=== PATIENT | male | born 1950 | race Caucasian/White ===

== ENCOUNTER → 2020-08-22 11:37 | Outpatient (BNVA) | payer OTHER, SELFPAY | PROVIDERS: PCP Family Medicine; Referring Provider Emergency Medicine Emergency Medical Services; Visit Provider Specialist | DX: S46.011A Strain of muscle(s) and tendon(s) of the rotator cuff of right shoulder, initial encounter (principal); X50.1XXA Overexertion from prolonged static or awkward postures, initial encounter | CPT/HCPCS: 73030 ==

== ENCOUNTER 2020-09-07 13:57 | Outpatient (RCR) | payer OTHER, SELFPAY | END 2020-09-07 23:59 | disposition home or self-care (01) | LOC: SPT 13:57 | PROVIDERS: PCP Family Medicine; Referring Provider Specialist; Visit Provider Specialist | DX: M75.01 Adhesive capsulitis of right shoulder (principal) | CPT/HCPCS: 97161 ==

== ENCOUNTER 2020-09-08 06:00 | Outpatient (RCR) | payer OTHER, SELFPAY | END 2020-10-07 23:59 | disposition home or self-care (01) | LOC: SPT 06:00 | PROVIDERS: PCP Family Medicine; Referring Provider Specialist; Visit Provider Specialist | DX: M75.01 Adhesive capsulitis of right shoulder (principal) | CPT/HCPCS: 97110; 97530 ==

== ENCOUNTER → 2020-09-21 14:43 | Outpatient (BNVA) | payer OTHER, SELFPAY | PROVIDERS: PCP Family Medicine; Referring Provider Family Medicine; Visit Provider Urology | DX: N39.9 Disorder of urinary system, unspecified (principal); N48.6 Induration penis plastica | CPT/HCPCS: 81003 ==

== ENCOUNTER 2020-10-08 06:00 | Outpatient (RCR) | payer OTHER, SELFPAY | END 2020-11-07 23:59 | disposition home or self-care (01) | LOC: SPT 06:00 | PROVIDERS: PCP Family Medicine; Referring Provider Specialist; Visit Provider Specialist | DX: M75.01 Adhesive capsulitis of right shoulder (principal) | CPT/HCPCS: 97110 ==

== ENCOUNTER 2020-11-01 09:43 | Outpatient (CLI) | payer OTHER, SELFPAY ==
[2020-11-01 09:47] VITALS: BMI 25.7
--- NOTE | 2020-11-01 10:04 | ECG_ITS ---
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 Interpretive Statements NAME OF STUDY: EXERCISE SESTAMIBI STRESS TEST INDICATION: [CP, ] EXERCISE DATA: The patient was exercised by Dann protocol. Baseline heart rate was 78 beats per minute. Baseline blood pressure was 124/81 millimeters of mercury. Target heart rate was 130 beats per minute. Maximum heart rate achieved was 145bpm, which was 111% of the target heart rate. Maximum blood pressure was 178/95 millimeters of mercury. Total exercise time was 3 minutes and 24 seconds. Maximum METs achieved was 4.6, maximum VO2 was 16.1. The reason for ending the test was completion of the protocol. The patient complained of shortness of breath during the stress test, which then resolved at the end of the test. ELECTROCARDIOGRAM: BASELINE: Showed sinus rhythm, normal axis, no significant ST-T changes at the baseline noted. [] EXERCISE: At the peak exercise level, [] minimal ST depressions seen in the inferior leads RECOVERY: During the recovery period, heart rate dropped appropriately. No significant ST-T changes in the recovery suggestive of ischemia noted. [] CONCLUSION: 1. Exercise capacity fair 2. Heart rate response was appropriate. 3. Blood pressure response was appropriate. 4. Symptoms not suggestive of ischemia. 5. Electrocardiogram portion of the stress test was not suggestive of ischemia. 6. Nuclear scan will be documented separately. Electronically Signed On 01-01-2021 17:48:56 CDT by Julio Johnson M.D. [id number]
--- NOTE | 2020-11-01 10:04 | NMCV_ITS ---
NM kalpana perf SPECT r/s* [id number] Dann Roe Age: 70 Gender: M : 1950 Exam Date: 11/01/2020 10:04 Ordering Phys: Kailey Husain Technologist: FILOMENA Nunn Exam Location: [facility] Indications: CHEST PAIN STRESS TEST [facility] IMAGE PROTOCOL Rest/Stress 1 Exercise Day Radiopharmaceutical Dose (mCi) Administration Site Administered by Rest: Tc-99m 11.0 IV FILOMENA Nunn Sestamibi Stress:Tc-99m 32.9 IV FILOMENA Nunn Sestamibi Rest: 01-Nov-2020 60 Discovery 630 Stress: 01-Nov-2020 15 Discovery 630 Radiopharmaceutical was injected at 87supine position only as patient was unable to lay prone. % maximum heart rate. SPECT RESULTS Technical Quality: Good Raw Data Analysis: Normal Image Corrections: No attenuation or motion correction applied Summed Stress Score: 0 Summed Rest Score: 0 Summed Difference Score: 0 PERFUSION FINDINGS Homogenous radiotracer uptake throughout the myocardium. No evidence of ischemia is noted FUNCTIONAL RESULTS (calculated via Gated SPECT) Stress Image LV EF (%): 71 Stress EDV (mL):66 TID: 0.98 Stress ESV (mL):19 FUNCTIONAL FINDINGS: There is normal left ventricular systolic function. IMPRESSIONS 1. Normal myocardial perfusion imaging with no evidence of ischemia 2. LV systolic function is normal Julio Johnson MD (Electronically Signed) Final Date: 04 Nov 2020 11:04 S
[2020-11-01 11:54] VITALS: BP 134/8; PULSE 75
== END 2020-11-01 09:44 | disposition home or self-care (01) ==
PROVIDERS: PCP Family Medicine; Visit Provider Internal Medicine Cardiovascular Disease
DX: R07.9 Chest pain, unspecified (principal)
CPT/HCPCS: 78452; 93017; A9500

== ENCOUNTER 2020-11-08 20:00 | Outpatient (CLI) | payer OTHER, SELFPAY | END 2020-11-08 20:01 | disposition home or self-care (01) | LOC: SLEEP 11-09 08:55 | PROVIDERS: PCP Family Medicine; Visit Provider Family Medicine | DX: R06.83 Snoring (principal); R53.83 Other fatigue; G47.33 Obstructive sleep apnea (adult) (pediatric) | CPT/HCPCS: 95810 ==

== ENCOUNTER 2020-12-19 06:47 | Outpatient (CLI) | payer OTHER, SELFPAY ==
--- NOTE | 2020-12-19 07:15 | USCV_ITS ---
Dann Roe Age: 70 Gender: M : 1950 Exam Date: 12/19/2020 07:16 Ordering Phys: Geraldine Benson MD ([email or web address]) Technologist: Evelio Mathew Exam Location: [facility] Indication: CHEST PAIN BP: 120 / 70 HR: 61 Rhythm: Sinus Technical Quality: Adequate MEASUREMENTS (Male / Female) Normal Values 2D ECHO LV Diastolic Diameter PLAX 3.8 cm 4.2 - 5.9 / 3.9 - 5.3 cm LV Systolic Diameter PLAX 2.2 cm IVS Diastolic Thickness 1.0 cm 0.6 - 1.0 / 0.6 - 0.9 cm IVS Systolic Thickness 1.1 cm LVPW Diastolic Thickness 0.9 cm 0.6 - 1.0 / 0.6 - 0.9 cm LVPW Systolic Thickness 1.1 cm LVOT Diameter 2.0 cm LV Ejection Fraction 2D Teich 74.7 % LV Ejection Fraction MOD 2C 65.0 % LV Ejection Fraction 2C AL 65.3 % LA Diameter 3.2 cm LA Width 3.3 cm LA Height 4.7 cm RA Width 3.7 cm RA Height 4.3 cm Aorta at Sinotubular Diameter 2.6 cm DOPPLER AV Peak Velocity 142.0 cm/s LVOT Peak Velocity 94.0 cm/s AV Area Cont Eq vti 2.4 cm squared AV Area Cont Eq pk 2.2 cm squared MV Area PHT 5.0 cm squared Mitral E to A Ratio 0.6 MV E' Velocity 32.0 cm/s Mitral E to MV E' Ratio 6.0 Mitral E to LV E' Lateral Ratio 5.7 Mitral E to LV E' Septal Ratio 6.2 TR Peak Velocity 160.3 cm/s TR Peak Gradient 10.3 mmHg TV Peak E Velocity 82.0 cm/s Right Atrial Pressure 3.0 mmHg Pulmonary Artery Systolic Pressu 13.3 mmHg RV Acceleration Time 0.1 s FINDINGS Left Ventricle Normal left ventricular size and systolic function, EF 61 %. No regional wall motion abnormalities. Grade I/IV diastolic dysfunction (abnormal relaxation filling pattern), normal to mildly elevated filling pressures. Right Ventricle The right ventricle is normal in size and function. Right Atrium The right atrium is normal in size. Left Atrium The left atrium is normal in size. Mitral Valve Trace mitral valve regurgitation. Aortic Valve No gross abnormalities noted Tricuspid Valve Gross abnormalities noted Pulmonic Valve Pulmonic valve not well visualized. Pericardium Normal pericardium without effusion. Aorta Normal ascending aorta dimension. CONCLUSIONS Normal left ventricular size and systolic function, EF 61 %. No regional wall motion abnormalities. Grade I/IV diastolic dysfunction (abnormal relaxation filling pattern), normal to mildly elevated filling pressures. Trace mitral valve regurgitation. There is no pericardial effusion. There are no intracardiac masses. No previous study is available for comparison. Dr Geraldine Benson MD [facility] (Electronically Signed) Final Date: 19 December 2020 12:09 S
== END 2020-12-19 06:48 | disposition home or self-care (01) ==
LOC: US 06:48
PROVIDERS: PCP Family Medicine; Visit Provider Internal Medicine Cardiovascular Disease
DX: R07.89 Other chest pain (principal); I34.0 Nonrheumatic mitral (valve) insufficiency
CPT/HCPCS: 93306

== ENCOUNTER → 2021-01-18 08:13 | Outpatient (BNVA) | payer OTHER, SELFPAY | PROVIDERS: PCP Family Medicine; Visit Provider Specialist | DX: M25.569 Pain in unspecified knee (principal); M17.11 Unilateral primary osteoarthritis, right knee | CPT/HCPCS: 73560; 73565 ==

== ENCOUNTER 2021-12-07 08:51 | Day surgery (SDC) | payer OTHER, SELFPAY ==
[2021-10-09 10:46] VITALS: BMI 24.2
[2021-12-05 10:24] VITALS: BMI 24.2
[2021-12-07 09:09] VITALS: BP 119/85; PULSE 67; RESP 18; TEMP 36.6; O2SAT 96
[2021-12-07] MEDS: sodium chloride 0.9% 1,000 ML 30 ML IV (09:38)
--- NOTE | 2021-12-07 10:08 | P.HP_ITS ---
Same Day Surgery H&P Indication for Procedure/HPI DATE OF PROCEDURE: December 07, 2021 CHIEF COMPLAINT/INDICATIONFOR SURGICAL PROCEDURE: History of Way's esophagus PREOP DIAGNOSIS: Way's esophagus and screening colonoscopy PLANNED PROCEDURE: Operation Date: 12/07/21 10:30 Proposed Procedures p EGD [id number]/k22.70/z12.11(Not Applicable) - MD rosanna Machuca Colonoscopy(Not Applicable) - Pascual Duncan MD 07/26/2021 This is a pleasant 71 years old gentleman referred to my practice with history of Way's esophagitis per his description and every 3 years he would get a surveillance EGD and the last one he had was about 4 years ago. At an outside facility. Patient reports that he has been on PPI therapy for more than 6 months. And the last colonoscopy was done about 12 years ago reported as normal per patient's description. He denies currently any abdominal pain, bleeding per rectum or history of colon cancer or iron deficiency anemia. Interim history 12/07/2021 Patient comes today for surveillance EGD and screening colonoscopy ROS All systems have been reviewed negative except as for the above or per problem list. Medications/Allergies* Home Medications Medication Instructions Recorded Confirmed Type ibuprofen 200 mg tablet 200 mg PO Q6H PRN 08/22/20 12/07/21 History lisinopril 40 mg tablet 40 mg PO DAILY 09/06/20 12/07/21 History nitroglycerin 0.4 mg sublingual 0.4 mg SUBLINGUAL Q5M PRN 09/06/20 12/07/21 History tablet omeprazole 20 mg capsule,delayed 20 mg PO DAILY 09/06/20 12/07/21 History release albuterol sulfate 90 mcg/actuation 2 puff INHALATION Q6H PRN 09/21/20 12/07/21 History aerosol inhaler (ProAir HFA) cholecalciferol (vitamin D3) 50 100 mcg PO DAILY cap 09/21/20 12/07/21 History mcg (2,000 unit) capsule nitroglycerin 0.4 % (w/w) rectal 1 inch WI BID PRN 09/21/20 12/07/21 History ointment triamcinolone acetonide 0.1 % 1 applic TOPICAL DAILY PRN 09/21/20 12/07/21 History topical cream Allergies/Adverse Reactions Allergy/AdvReac Type Severity Reaction Status Date / Time erythromycin base Allergy Unknown Verified 12/07/21 10:10 tramadol Allergy Unknown Verified 12/07/21 10:10 Current Medications: Generic Name Dose Route Start Last Admin Trade Name Benoitq PRN Reason Stop Dose Admin Sodium Chloride 1,000 mls @ 30 mls/hr 12/07/21 09:15 12/07/21 09:38 Sodium Chloride 0.9% IV 30 mls/hr .Q24H SANCHO Administration Pertinent History/Comorbid Conditions* Medical History (Updated 07/29/21 @ 16:05 by Pascual Duncan MD) Ganglion cyst Hernia, inguinal History of asthma Hx of benign neoplasm of breast Hypertension Peyronie's disease Torn ligament Surgical History (Updated 07/17/21 @ 16:27 by Laura Melara DO) History of cholecystectomy Hx of hand surgery Hx of inguinal hernia repair Hx of right knee surgery Family History (Updated 11/09/20 @ 15:21 by Kait Roman RN) Father, at 74 Mother, at 83 Diabetes Father CAD (coronary artery disease) Father Mother Clotting disorder Mother Brother Dementia Family/Other Cancer Mother Brother Hypertension Father Denies family history of Chronic kidney disease (CKD) Suicide Anesthesia complication Bleeding disorder Lung disease Stroke Social History Smoking and tobacco status: never smoked Alcohol intake: never Marital status: Current occupational status: retired History of recent travel: No Pertinent Exam Findings alert, oriented x 3, regular rate & rhythm and procedure specific exam findings (Abdominal exam nontender nondistended soft) Recommendations Surgery/Procedure today (EGD and colonoscopy with possible biopsy) Coding Level of Care Code Acute 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
--- NOTE | 2021-12-07 10:39 | ANES.PREANE2 ---
Pre-Anesthetic Assessment Height/Weight: Height 1.68 m Weight 68.039 kg Temp Pulse Resp BP Pulse Ox 97.8 F 67 18 119/85 96 12/07/21 09:09 12/07/21 09:09 12/07/21 09:09 12/07/21 09:09 12/07/21 09:09 Preop Diagnosis: Way's esophagus and screening colonoscopy Operation Date: 12/07/21 10:30 Proposed Procedures p EGD [id number]/k22.70/z12.11(Not Applicable) - Pascual Duncan MD s Colonoscopy(Not Applicable) - Pascual Duncan MD Familial anesthetic complications: Hx of esophageal spasm w/ anesthesia, continues to have esophageal spasm at home which is relieved with nitroglycerin Was Beta Jared taken within 24 hours: N/A Was Clonidine taken within 24 hours: N/A Last intake: Intake Last Liquid Date 12/06/21 Last Liquid Time 21:00 Last Solid Date 12/05/21 Last Solid Time 00:00 Social No alcohol and No tobacco Exam alert, oriented x 3, clear to auscultation bilaterally and regular rate & rhythm Airway Submandibular: within normal limits Cervical ROM: within normal limits Mallampati: Class I Dentition: full History/ROS No significant complaints Pulmonary Asthma vocal cord nodule CV/HEM Hypertension METS > 4 None reported Hepatic None reported GI Gastroesophageal Reflux Disease Hx Barretts Metabolic Hx of hypoglycemia Musc/skel None reported Neuropsych None reported Anesthetic Plan ASA status: 2 Anesthesia: Anesthesia Evaluation, General and MAC Other: I discussed with the patient risks, goals, and benefits of MAC and general anesthesia. We discussed spectrum of MAC anesthesia including conversion to general as well as possibility of recall of intraoperative stimuli including discomfort/pain. Patient agrees to proceed with MAC. Risk of > 500 ml blood loss (7ml/kg in children): No Medications/Allergies Home Medications Medication Instructions Recorded Confirmed Last Taken Type ibuprofen 200 mg tablet 200 mg PO Q6H PRN 08/22/20 12/07/21 12/06/21 History lisinopril 40 mg tablet 40 mg PO DAILY 09/06/20 12/07/21 12/06/21 History nitroglycerin 0.4 mg sublingual 0.4 mg SUBLINGUAL Q5M PRN 09/06/20 12/07/21 Unknown History tablet omeprazole 20 mg capsule,delayed 20 mg PO DAILY 09/06/20 12/07/21 12/06/21 History release albuterol sulfate 90 mcg/actuation 2 puff INHALATION Q6H PRN 09/21/20 12/07/21 11/07/21 History aerosol inhaler (ProAir HFA) cholecalciferol (vitamin D3) 50 100 mcg PO DAILY cap 09/21/20 12/07/21 12/06/21 History mcg (2,000 unit) capsule nitroglycerin 0.4 % (w/w) rectal 1 inch MO BID PRN 09/21/20 12/07/21 Unknown History ointment triamcinolone acetonide 0.1 % 1 applic TOPICAL DAILY PRN 09/21/20 12/07/21 Unknown History topical cream Allergies Allergy/AdvReac Type Severity Reaction Status Date / Time erythromycin base Allergy Unknown Verified 12/07/21 10:10 tramadol Allergy Unknown Verified 12/07/21 10:10 Current Medications Generic Name Dose Route Start Last Admin Trade Name Freq PRN Reason Stop Dose Admin Sodium Chloride 1,000 mls @ 30 mls/hr 12/07/21 09:15 12/07/21 09:38 Sodium Chloride 0.9% IV 30 mls/hr .Q24H SANCHO Administration PFSH Anesthesia Medical History Ganglion cyst Hernia, inguinal History of asthma Hx of benign neoplasm of breast Hypertension Peyronie's disease Torn ligament Surgical History History of cholecystectomy Hx of hand surgery Hx of inguinal hernia repair Hx of right knee surgery Family History Father , at 74 CAD (coronary artery disease) Diabetes Hypertension Mother , at 83 Cancer CAD (coronary artery disease) Clotting disorder Brother Cancer Clotting disorder Family/Other Dementia Denies family history of Chronic kidney disease (CKD) Suicide Anesthesia complication Bleeding disorder Lung disease Stroke Social History Smoking and tobacco status: never smoked Alcohol intake: never Marital status: Current occupational status: retired History of recent travel: No Data Anesthesia Cardiac Studies: Echocardiogram 12/19/20 Sestamibi Stress Test (Cardiology) 11/01/20
[2021-12-07 11:02] VITALS: BP 102/75; PULSE 64; RESP 16; TEMP 36.1; O2SAT 94
--- NOTE | 2021-12-07 11:02 | ANE.PACU2 ---
Documented by User: Jessica Barron CRNA 12/07/21 11:05 Inpatient post-anesthesia follow up: Airway intact: Yes Vital signs: Temperature 97.8 F Pulse Rate 67 Respiratory Rate 18 Blood Pressure 119/85 Pulse Oximetry 96 Oxygen Delivery Me thod Room Air Oxygen Flow Rate Fraction of Inspir ed Oxygen Hydration adequate: Yes Nausea and vomiting: No Pain level: 1 Mental status: Baseline
[2021-12-07 11:07] VITALS: BP 107/85; PULSE 60; RESP 16; O2SAT 93
[2021-12-07 11:17] VITALS: BP 123/97; PULSE 65; RESP 18; O2SAT 95
== END 2021-12-07 11:41 | disposition home or self-care (01) ==
PROVIDERS: PCP Family Medicine; Visit Provider Surgery
PROC: 0DJ08ZZ Inspection of Upper Intestinal Tract, Via Natural or Artificial Opening Endoscopic (ICD-10-PCS; CPT 43235; principal; 2021-12-07 10:30)
PROC: 0DJD8ZZ Inspection of Lower Intestinal Tract, Via Natural or Artificial Opening Endoscopic (ICD-10-PCS; CPT 45378; 2021-12-07 10:30)
DX: Z12.11 Encounter for screening for malignant neoplasm of colon (principal); K22.70 Barrett's esophagus without dysplasia; K29.70 Gastritis, unspecified, without bleeding
CPT/HCPCS: 43239; 45378; 88305; J2704; J7030

== ENCOUNTER → 2021-12-14 14:51 | Outpatient (BNVA) | payer OTHER, SELFPAY | PROVIDERS: PCP Family Medicine; Visit Provider Surgery | DX: Z09 Encounter for follow-up examination after completed treatment for conditions other than malignant neoplasm (principal); K29.70 Gastritis, unspecified, without bleeding; K22.70 Barrett's esophagus without dysplasia | CPT/HCPCS: 99213 ==

== ENCOUNTER 2022-07-27 21:38 | Emergency (ER) | payer OTHER, SELFPAY ==
[2022-07-27 21:43] VITALS: BP 141/83; PULSE 137; RESP 16; TEMP 36.9; O2SAT 95
--- NOTE | 2022-07-27 21:52 | XRR_ITS ---
PROCEDURE INFORMATION: Exam: XR Chest Exam date and time: 07/27/2022 9:59 PM Age: 72 years old Clinical indication: Shortness of breath; Additional info: SOB TECHNIQUE: Imaging protocol: Radiologic exam of the chest. Views: 1 view. COMPARISON: No relevant prior studies available. FINDINGS: Lungs: No CHF/pulmonary edema. Visible lungs appear essentially clear. Pleural spaces: No visible pneumothorax. No definite pleural fluid. Heart/Mediastinum: Heart size is within normal limits. Bones/joints: No significant acute finding. XR/XR chest 1V portable [id number] IMPRESSION: 1. No definite CHF or pneumonia. 2. Other findings discussed above.
--- NOTE | 2022-07-27 21:53 | ECG_ITS ---
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 Measurements Intervals [place] Rate: 108 P: 9 NC: 141 QRS: 72 QRSD: 89 T: -3 QT: 287 QTc: 386 Interpretive Statements SINUS TACHYCARDIA NONSPECIFIC ST & T-WAVE ABNORMALITY No previous ECG available for comparison Electronically Signed On 07-27-2022 23:13:04 FACILITY SERVICE ASSOCIATE by Gela Carl M.D. [id number]
--- NOTE | 2022-07-27 21:55 | CTR_ITS ---
PROCEDURE INFORMATION: Exam: CT Abdomen And Pelvis With Contrast Exam date and time: 07/27/2022 11:27 PM Age: 72 years old Clinical indication: Abdominal pain; Localized; Right lower quadrant (rlq); Prior surgery; Surgery date: 6+ months; Surgery type: Cholecystectomy; Additional info: Abd pain TECHNIQUE: Imaging protocol: Computed tomography of the abdomen and pelvis with contrast. Radiation optimization: All CT scans at this facility use at least one of these dose optimization techniques: automated exposure control; mA and/or kV adjustment per patient size (includes targeted exams where dose is matched to clinical indication); or iterative reconstruction. Contrast material: OMNI 350; Contrast volume: 100 ml; Contrast route: INTRAVENOUS (IV); Other protocol: This patient has received 0 known CTs and 0 known cardiac nuclear medicine studies in the 12 months prior to the current study. COMPARISON: CR (CHEST, ) 07/27/2022 9:59 PM RADIATION DOSE METRICS: Total DLP (mGy-cm): 454.42 FINDINGS: Lungs: There is some subsegmental atelectasis at the lung bases. There are few nonspecific solid noncalcified pulmonary nodules such as a 3 mm nodule middle lobe series 3, image number 4 5 mm nodule left lower lobe series 3, image 12 and other similar nodules. For patients at low risk (minimal or absent history of smoking and of other known risk factors), no routine follow-up is indicated. For patients at high risk (history of smoking or of other known risk factors), consider optional CT Chest at 12 months. (Reference: Barbara). There is some minimal dependent atelectasis at the lung bases. Diaphragm: There is a small hiatal hernia. Liver: There is no focal abnormality within the liver. Gallbladder and bile ducts: There has been a cholecystectomy. Pancreas: The pancreas is normal. Spleen: The spleen is normal. Adrenal glands: The adrenal glands are normal. Kidneys and ureters: 18 mm benign-appearing simple cyst mid right kidney. Small nonobstructing stone lower pole calyx right kidney. There is no evidence of hydronephrosis. There is no stone along the course of either ureter. The left kidney is normal. Stomach and bowel: There are areas of thickening of the right colon with some minimal pericolonic stranding. Findings could represent some nonspecific colitis or inflammatory bowel disease.There is no evidence of intestinal obstruction. Appendix: Appendix is not identified. Intraperitoneal space: Unremarkable. No free air. No significant fluid collection. Vasculature: The aorta is normal. Lymph nodes: There is no evidence of lymphadenopathy. Urinary bladder: Unremarkable as visualized. Reproductive: Unremarkable as visualized. Bones/joints: There is some degenerative change in the lower lumbar spine. Soft tissues: There is moderate sized left inguinal hernia containing only fat. CT/CT abdomen pelvis w con* [id number] IMPRESSION: 1. Findings nonspecific colitis involving the right colon. 2. Small basilar pulmonary nodules. Consider follow-up according to Fleischner society guidelines. COMMENTS: Consistent with the [employer]'s Incidental Findings Committee white paper (J Am Turner Radiol 2018): Any incidental renal lesion less than 1 cm or classified as too small to characterize, or any incidental cystic renal lesion characterized as simple-appearing, is likely benign. No follow-up imaging is recommended for these lesions per consensus recommendations based on imaging criteria. REFERENCES: 1. MacMahon H, et al. Guidelines for Management of Incidental Pulmonary Nodules Detected on CT Images: From the Fleischner Society 2017. Radiology. 2017;284(1):228-243. 2. MacElidahon H, et al. Guidelines for Management of Incidental Pulmonary Nodules Detected on CT Images: From the Fleischner Society 2017. Radiology. 2017;284(1):228-243.
[2022-07-27 22:01] VITALS: BP 139/85; PULSE 130; RESP 20; O2SAT 94
--- NOTE | 2022-07-27 22:06 | W.ED.ABDPA2 ---
HPI - Abdominal Pain General: Chief Complaint: Abdominal Pain Stated Complaint: fever Time Seen by Provider: 07/27/22 21:45 Source: patient Mode of arrival: ambulatory Limitations: no limitations History of Present Illness: 72-year-old male states that he has been having abdominal pain since yesterday. He states this right-sided pain in the right lower and right upper quadrant states that pain comes in waves and sharp in nature currently is a 4 out of 10 he has had chills possible fever but has not checked it he is also had a cough denies any vomiting or diarrhea. Associated Symptoms: Denies chills, dysuria and fever(s) Review of Systems Const: Denies: fever(s), chills, body aches or change in appetite Eyes: Denies: blurry vision or eye discomfort ENMT: Denies: throat pain or dental pain Card: Denies: chest pain Resp: Reports: non-productive cough GI: Reports: abdominal pain : Denies: dysuria Musc: Denies: neck pain or back pain Skin/Breast: Denies: rash Neuro: Denies: headache(s) Psych: Denies: depression Adi/Lymph: Denies: easy bruising All/Imm: Denies: urticaria PFSH ED PFSH: Medical History Ganglion cyst Hernia, inguinal History of asthma Hx of benign neoplasm of breast Hypertension Peyronie's disease Torn ligament Surgical History History of cholecystectomy Hx of hand surgery Hx of inguinal hernia repair Hx of right knee surgery Family History Father , at 74 CAD (coronary artery disease) Diabetes Hypertension Mother , at 83 Cancer CAD (coronary artery disease) Clotting disorder Brother Cancer Clotting disorder Family/Other Dementia Denies family history of Chronic kidney disease (CKD) Suicide Anesthesia complication Bleeding disorder Lung disease Stroke Social History Smoking and tobacco status: never smoked Alcohol intake: never Marital status: Current occupational status: retired Physical Exam Const: COMMON NORMALS: no acute distress, patient oriented x3 and healthy appearing HENMT: COMMON NORMALS: normocephalic and atraumatic HEAD & SCALP: normocephalic and atraumatic Eye: COMMON NORMALS: Equal, round and reactive pupils present and EOMs intact bilaterally PUPIL: Yes Equal, round and reactive pupils present Neck/C-Spine: COMMON NORMALS: full ROM and supple Chest: COMMONS NORMALS: normal inspection of the chest and normal palpation of entire chest wall Resp: COMMON NORMALS: normal respiratory effort, No retractions, No use of accessory muscles and clear to auscultation bilaterally AUSCULTATION: clear to auscultation bilaterally Cardio: COMMON NORMALS: regular rate, regular rhythm and No murmurs present (Cardio) RATE: regular rate RHYTHM: regular rhythm GI: COMMON NORMALS: Normal to inspection, nondistended, normoactive bowel sounds present, Soft to palpation, non-tender and no masses PALPATION: Yes Soft to palpation Extremity: COMMON NORMALS: normal to inspection and full ROM Neuro: COMMON NORMALS: patient oriented x3, moves all extremities and no focal motor deficits Psych: COMMON NORMALS: mental status grossly normal, Normal thought process present and cooperative THOUGHT PROCESS: Normal thought process present Skin: COMMON NORMALS: no rashes or lesions noted and no wounds GENERAL SKIN EXAM: no rashes or lesions noted Course Vital Signs: Vital signs: Vital Signs Temperature 98.5 F 07/27/22 21:43 Pulse Rate 108 H 07/27/22 22:36 Respiratory Rate 20 H 07/27/22 22:01 Blood Pressure 129/91 07/28/22 00:00 Pulse Oximetry 94 07/28/22 00:00 Oxygen Delivery Me thod 07/27/22 22:01 MDM - Abdominal Pain Medical Decision Making Patient presents here with abdominal pain CT does show colitis he has had no vomiting here his blood work is normal we will start him on Cipro Flagyl he is to follow-up with surgery return if worsening. Lab Data 07/27/22 21:57 07/27/22 21:57 Labs/Radiology: Radiology Impressions Chest X-Ray 07/27/22 21:52 IMPRESSION: 1. No definite CHF or pneumonia. 2. Other findings discussed above. Abdomen/Pelvis CT 07/27/22 21:55 IMPRESSION: 1. Findings nonspecific colitis involving the right colon. 2. Small basilar pulmonary nodules. Consider follow-up according to Fleischner society guidelines. COMMENTS: Consistent with the [employer]'s Incidental Findings Committee white paper (J Am Turner Radiol 2018): Any incidental renal lesion less than 1 cm or classified as too small to characterize, or any incidental cystic renal lesion characterized as simple-appearing, is likely benign. No follow-up imaging is recommended for these lesions per consensus recommendations based on imaging criteria. REFERENCES: 1. Jermainehorossy H, et al. Guidelines for Management of Incidental Pulmonary Nodules Detected on CT Images: From the Fleischner Society 2017. Radiology. 2017;284(1):228-243. 2. Barbara Ponce, et al. Guidelines for Management of Incidental Pulmonary Nodules Detected on CT Images: From the Fleischner Society 2017. Radiology. 2017;284(1):228-243. Laboratory Results WBC 9.5 10^3/uL (4.0-10.0) 07/27/22 21:57 RBC 4.73 10^6/uL (4.1-5.3) 07/27/22 21:57 Hgb 13.8 g/dL (11.7-16.6) 07/27/22 21:57 Hct 41.0 % (42.0-52.0) L 07/27/22 21:57 MCV 86.7 fl (80-94) 07/27/22 21:57 MCH 29.2 pg (28.0-34.0) 07/27/22 21:57 MCHC 33.7 g/dL (30.0-36.0) 07/27/22 21:57 RDW 12.2 % (12.1-15.1) 07/27/22 21:57 Plt Count 171 10^3/cmm (130-400) 07/27/22 21:57 MPV 8.9 fL (7.4-10.4) 07/27/22 21:57 Neut % (Auto) 82.0 % 07/27/22 21:57 Lymph % (Auto) 8.2 % 07/27/22 21:57 Brooks % (Auto) 8.9 % 07/27/22 21:57 Eos % (Auto) 0.4 % 07/27/22 21:57 Baso % (Auto) 0.3 % 07/27/22 21:57 Neut # (Auto) 7.77 10^3/uL (1.8-7.7) H 07/27/22 21:57 Lymph # (Auto) 0.8 10^3/uL (0.8-4.8) 07/27/22 21:57 Brooks # (Auto) 0.8 10^3/uL (0.2-0.9) 07/27/22 21:57 Eos # (Auto) 0.0 10^3/uL (0.0-0.8) 07/27/22 21:57 Baso # (Auto) 0.0 10^3/uL (0.0-0.1) 07/27/22 21:57 Nucleated RBC % (auto) 0 % 07/27/22 21:57 Nucleated RBCs # 0.0 /100WBC 07/27/22 21:57 Sodium 133 mmol/L (136-145) L 07/27/22 21:57 Potassium 3.8 mmol/L (3.5-5.1) 07/27/22 21:57 Chloride 100 mmol/L (98-107) 07/27/22 21:57 Carbon Dioxide 24 mmol/L (22-29) 07/27/22 21:57 Anion Gap 12.8 (5-19) 07/27/22 21:57 BUN 19 mg/dL (8-23) 07/27/22 21:57 Creatinine 0.9 mg/dL (0.7-1.2) 07/27/22 21:57 GFR Calculation 83.4 mL/min (90-130) L 07/27/22 21:57 Glucose 130 mg/dL (65-115) H 07/27/22 21:57 Calculated Osmolality 280 mOsm/kg (285-295) L 07/27/22 21:57 Calcium 9.2 mg/dL (8.5-10.5) 07/27/22 21:57 Total Bilirubin 0.3 mg/dL (0.15-1.2) 07/27/22 21:57 AST 13 U/L (0-40) 07/27/22 21:57 ALT 12 U/L (0-41) 07/27/22 21:57 Alkaline Phosphatase 104 U/L (40-130) 07/27/22 21:57 Total Protein 6.7 g/dL (6.6-8.7) 07/27/22 21:57 Albumin 3.9 g/dL (3.5-5.2) 07/27/22 21:57 Globulin 2.8 g/dL (1.3-4.6) 07/27/22 21:57 Lipase 23 U/L (13-60) 07/27/22 21:57 Urine Color Yellow (Yellow) 07/27/22 22:13 Urine Appearance Clear (CLEAR) 07/27/22 22:13 Urine pH 5 (5-7) 07/27/22 22:13 Ur Specific [place] 1.025 (1.005-1.030) 07/27/22 22:13 Urine Protein Neg (Negative) 07/27/22 22:13 Urine Glucose (UA) Norm (Normal) 07/27/22 22:13 Urine Ketones Negative (Negative) 07/27/22 22:13 Urine Blood Neg (Negative) 07/27/22 22:13 Urine Nitrate Negative (Negative) 07/27/22 22:13 Urine Bilirubin Neg (Negative) 07/27/22 22:13 Urine Urobilinogen Neg mg/dL (Negative) 07/27/22 22:13 Ur Leukocyte Esterase Negative (Negative) 07/27/22 22:13 Influenza Type A Ag negative (Negative) 07/27/22 22:03 Influenza Type B Ag negative (Negative) 07/27/22 22:03 SARS-CoV-2 Ag (Rapid) Negative (Negative) 07/27/22 22:03 Discharge Plan Discharge Patient Disposition: Home Clinical Impression: Abdominal pain, Colitis Condition: Stable Prescriptions: New hydrocodone-acetaminophen 5-325 mg tablet 1 tab PO Q6H PRN (Reason: pain) Qty: 14 0RF metronidazole 500 mg tablet 500 mg PO Q8H 7 Days Qty: 21 0RF ciprofloxacin HCl [Cipro] 500 mg tablet 500 mg PO BID Qty: 14 0RF ondansetron 4 mg tablet,disintegrating 4 mg PO Q6H PRN (Reason: nausea and vomiting) Qty: 14 0RF No Action ibuprofen 200 mg tablet 200 mg PO Q6H PRN (Reason: Pain) Hold Instructions: Resume on 12/13/21. nitroglycerin 0.4 mg tablet, sublingual 0.4 mg sublingual Q5M PRN (Reason: Chest Pain) Rx Instructions: do not exceed 3 doses per episode lisinopril 40 mg tablet 40 mg PO DAILY cholecalciferol (vitamin D3) 50 mcg (2,000 unit) capsule 100 mcg PO DAILY albuterol sulfate [ProAir HFA] 90 mcg/actuation HFA aerosol inhaler 2 puff inhalation Q6H PRN (Reason: Shortness Of Breath) nitroglycerin 0.4 % (w/w) ointment 1 inch AL BID PRN (Reason: Chest Pain) triamcinolone acetonide 0.1 % cream 1 applic topical DAILY PRN (Reason: Rash) Protonix 40 mg tablet,delayed release (DR/EC) 40 mg PO DAILY 30 Days Qty: 30 3RF Discharge Orders: Discharge ED (Routine); Ordered 07/28/22 Ordered By: Arianne Wayne Referrals: Juanita Young MD [Primary Care Provider] - Hany Nair DO [Physician] - 1-3 days Discharge Diet: Advance as tolerated Discharge Activity: Resume usual activity Patient Instructions: Abdominal Pain (ED), Opioid Safety, Pain Management Coding Level of Care Code ED Machine [employer] Screen Printer for Alannah Ruiz
[2022-07-27] MEDS: morphine 4 mg/mL SDV 1 mL IVP (22:14)
[2022-07-27] MEDS: sodium chloride 0.9% 1,000 ML 999 ML IV (22:14)
[2022-07-27] MEDS: ondansetron 2 mg/ML SDV 2 mL 4 MG IVP (22:14)
[2022-07-27 22:15] LABS: Basophils % 0.3 %; Eosinophils % 0.4 %; Hemoglobin 13.8 g/dL (11.7-16.6); Lymphocytes # 0.8 10^3/uL (0.8-4.8); Lymphocytes % 8.2 %; Mean Corpuscular HGB Conc 33.7 g/dL (30.0-36.0); Mean Corpuscular Hemoglobin 29.2 pg (28.0-34.0); Mean Corpuscular Volume 86.7 fl (80-94); Mean Platelet Volume 8.9 fL (7.4-10.4); Monocytes # 0.8 10^3/uL (0.2-0.9); Monocytes % 8.9 %; Neutrophils # 7.77 10^3/uL (1.8-7.7); Nucleated Red Blood Cells % 0 %; Platelet Count 171 10^3/cmm (130-400); Red Blood Count 4.73 10^6/uL (4.1-5.3); Red Cell Distribution Width 12.2 % (12.1-15.1); White Blood Count 9.5 10^3/uL (4.0-10.0)
[2022-07-27 22:36] VITALS: BP 136/83; PULSE 108; O2SAT 93
[2022-07-27 22:43] LABS: Alanine Aminotransferase 12 U/L (0-41); Albumin Level 3.9 g/dL (3.5-5.2); Alkaline Phosphatase 104 U/L (40-130); Anion Gap 12.8 (5-19); Aspartate Amino Transferase 13 U/L (0-40); Blood Urea Nitrogen 19 mg/dL (8-23); Calcium 9.2 mg/dL (8.5-10.5); Carbon Dioxide 24 mmol/L (22-29); Chloride 100 mmol/L (98-107); Globulin 2.8 g/dL (1.3-4.6); Glomerular Filtration Rate 83.4 mL/min (90-130); Glucose 130 mg/dL (65-115); Lipase 23 U/L (13-60); Osmolality Calculated 280 mOsm/kg (285-295); Potassium 3.8 mmol/L (3.5-5.1); Sodium 133 mmol/L (136-145); Total Bilirubin 0.3 mg/dL (0.15-1.2); Total Protein 6.7 g/dL (6.6-8.7)
[2022-07-27 22:43] LABS: Add Urine Microscopic? NO; Charge for UA Resulting for Rev
[2022-07-27 22:45] LABS: Influenza A by IFA negative (Negative); Influenza B by IFA negative (Negative)
[2022-07-27 22:54] LABS: SARS Covid-2 Antigen Negative (Negative)
[2022-07-27] MEDS: iohexol 350 mg/mL 500 mL Btl (per mL) IV (22:54)
[2022-07-27 22:57] LABS: Bilirubin Urine Neg (Negative); Blood Urine Neg (Negative); Glucose Urine UA Norm (Normal); Ketones Urine Negative (Negative); Leukocyte Esterase Urine Negative (Negative); Nitrate Urine Negative (Negative); Protein Urine Neg (Negative); Specific Gravity, Urine 1.025 (1.005-1.030); Urine Appearance Clear (CLEAR); Urine Color Yellow (Yellow); Urobilinogen Urine Neg (Negative); pH Urine 5 (5-7)
[2022-07-28] VITALS: BP 129/91; O2SAT 94
[2022-07-28] MEDS: ciprofloxacin 500 mg Tablet PO (01:04)
[2022-07-28] MEDS: metroNIDAZOLE 500 MG Tablet PO (01:04)
[2022-07-28 01:23] VITALS: BP 119/98; PULSE 108; RESP 16; O2SAT 95
--- NOTE | 2022-07-30 11:16 | DCPLANNER ---
Addendum entered by Krys Mcgee 07/31/22 15:01: cardiology manager received the following message from the general surgery clinic regarding follow up appointment: unfortunately Dr[facility] Nair [facility] patient will need to be referred elsewhere cardiology manager called patient and explained this to patient and asked patient if he would like to be referred to [facility] or [facility]. Patient stated that he was going to follow up with [facility], [facility], and will let his primary care refer him elsewhere. Original Note: cardiology manager had message to schedule a follow up appointment for patient with general surgery. cardiology manager sent patients information to the front office staff at general surgery. Patients information will be printed and reviewed. Clinic will call patient with appointment information.
== END 2022-07-28 01:24 | disposition home or self-care (01) ==
PROVIDERS: Emergency Provider Emergency Medicine; PCP Family Medicine
DX: K52.9 Noninfective gastroenteritis and colitis, unspecified (principal); Z20.822 Contact with and (suspected) exposure to COVID-19; I10 Essential (primary) hypertension
CPT/HCPCS: 71045; 74177; 80053; 81003; 83690; 85025; 87426; 87804; 93005; 96374; 96375; 99285; J2270; J2405; J7030; Q9967

== ENCOUNTER 2022-08-15 11:31 | Emergency (ER) | payer OTHER, SELFPAY ==
[2022-08-15 11:36] VITALS: BP 120/78; PULSE 122; RESP 22; TEMP 36.7; O2SAT 96; BMI 24.2
--- NOTE | 2022-08-15 11:40 | PC.PHAR ---
[facility] fax[facility] med [facility]
--- NOTE | 2022-08-15 11:54 | CT_ITS ---
WS: [id number] CT ABDOMEN PELVIS TECHNIQUE: Contrast-enhanced CT of the abdomen and pelvis with coronal and sagittal reformatted image s. CLINICAL INFORMATION: abd pain COMPARISON: July 27, 2022 DLP: 395.[address] scans at [facility] use at least one of these dose optimization techniques: automated e xposure control; mA and/or kV adjustment per patient size (includes targeted exams where dose is matc hed to clinical indication); or iterative reconstruction. FINDINGS: Again seen is diffuse transmural wall thickening with luminal narrowing involving the cecum and RIGHT ascending colon. Associated mucosal submucosal enhancement. Surrounding enlarged lymph nodes in the RIGHT lower quadrant have progressed compared to previous. Again findings suspicious for colitis em miguel carcinoma not excluded and recommend follow-up to resolution. A few air-fluid levels in the trans verse colon. Normal descending LEFT colon. Fluid within the sigmoid colon with mild mucosal enhanceme nt. Enlarged prostate measuring 4.5 CM. Diffuse fatty infiltration of the liver. Normal portal vein and s plenic vein. Normal pancreas. Small esophageal hiatal hernia. A few small subcentimeter nodules in th e lung bases are similar in appearance to the prior CT abdomen pelvis. Largest measure 4 to 5 mm. Nor mal spleen. Normal caliber abdominal aorta. Celiac and SMA are patent. Adrenal glands are normal. Normal renal parenchymal enhancement. No hydronephrosis. RIGHT renal cyst measuring 15 mm. Incidental fat-containing LEFT inguinal hernia. CT/CT abdomen pelvis w con* [id number] IMPRESSION: 1. Diffuse thickening with luminal narrowing and enhancement involving the cec um and extending into the ascending colon similar in appearance to the prior ex amination suspicious for colitis. Carcinoma is not excluded. Recommend follow-u p to resolution and/or further evaluation with colonoscopy. 2. Enlarged lymph nodes in the RIGHT lower quadrant progressed compared to pre vious. 3. Decompressed fluid-filled sigmoid colon with mucosal enhancement suspicious for infectious/inflammatory colitis. 4. Enlarged prostate measuring 4.5 CM. 5. Diffuse fatty infiltration liver. 6. Several noncalcified nodules in the lung bases similar to previous. Recomme nd 6 month follow-up chest CT Notified Alan Gibson DO at 08/15/2022 2:16 PM.
--- NOTE | 2022-08-15 11:54 | XR_ITS ---
WS: [id number] Portable AP upright chest, 08/15/2022 Clinical Data: dyspnea/cough Comparison: Portable chest, 07/27/2022 Findings: No nodules, masses or effusions are seen. The heart is normal. The pulmonary vascularity is not increased. No pneumonia or pneumothorax is seen. The aortic arch shows mild tortuosity. There ar e monitor leads on the chest wall. XR/XR chest 1V portable [id number] Impression: Atherosclerosis.
--- NOTE | 2022-08-15 12:00 | PC.NURSE ---
pt on bedside campus monitor
[2022-08-15 12:12] LABS: Basophils % 0.5 %; Hematocrit 41.9 % (42.0-52.0); Hemoglobin 14.2 g/dL (11.7-16.6); Lymphocytes # 0.5 10^3/uL (0.8-4.8); Mean Corpuscular HGB Conc 33.9 g/dL (30.0-36.0); Mean Corpuscular Hemoglobin 29.5 pg (28.0-34.0); Mean Corpuscular Volume 86.9 fl (80-94); Mean Platelet Volume 9.2 fL (7.4-10.4); Monocytes # 0.8 10^3/uL (0.2-0.9); Neutrophils # 7.39 10^3/uL (1.8-7.7); Nucleated Red Blood Cells % 0 %; Platelet Count 201 10^3/cmm (130-400); Red Blood Count 4.82 10^6/uL (4.1-5.3); Red Cell Distribution Width 12.4 % (12.1-15.1); White Blood Count 8.8 10^3/uL (4.0-10.0)
--- NOTE | 2022-08-15 12:22 | ECG_ITS ---
[facility] Test Date: 2022-08-15 Pat Name: Dann Roe Department: Room: Gender: Male Suppression Crew Leader: : 1950 Requested By: Alan Lawler Order Number: [id number] Clif[place] MD: Dave Garcia M.D. Measurements Intervals [place] Rate: 110 P: -5 MI: 131 QRS: 67 QRSD: 92 T: -21 QT: 305 QTc: 414 Interpretive Statements SINUS TACHYCARDIA WITH OCCASIONAL VENTRICULAR PREMATURE COMPLEXES POSSIBLE INFERIOR MYOCARDIAL INFARCTION , OF INDETERMINATE AGE [30 ms Q WAVE IN II/aVF] Compared to ECG 07/27/2022 22:22:55 Ventricular premature complex(es) now present Myocardial infarct finding now present T-wave abnormality no longer present Electronically Signed On 08-15-2022 15:07:34 HELP DESK REP by Dave Garcia M.D. [email or web address]
[2022-08-15 12:32] LABS: Alanine Aminotransferase 24 U/L (0-41); Albumin Level 3.9 g/dL (3.5-5.2); Alkaline Phosphatase 78 U/L (40-130); Anion Gap 16.8 (5-19); Aspartate Amino Transferase 20 U/L (0-40); Blood Urea Nitrogen 16 mg/dL (8-23); Carbon Dioxide 23 mmol/L (22-29); Chloride 97 mmol/L (98-107); Globulin 3.1 g/dL (1.3-4.6); Glomerular Filtration Rate 73.9 mL/min (90-130); Glucose 115 mg/dL (65-115); Osmolality Calculated 278 mOsm/kg (285-295); Potassium 3.8 mmol/L (3.5-5.1); Sodium 133 mmol/L (136-145); Total Bilirubin 0.6 mg/dL (0.15-1.2)
--- NOTE | 2022-08-15 12:56 | ED_ITS ---
HPI - Abdominal Pain General: Chief Complaint: Abdominal Pain Stated Complaint: headache, abd pain Time Seen by Provider: 08/15/22 11:44 Source: patient Mode of arrival: ambulatory History of Present Illness: 72-year-old male presents emergency room with cough myalgias loose stools diarrhea abdominal cramping and pain systemic my algias that began over the last couple of days. He had similar symptoms several weeks ago is found to have a colitis treated with Cipro and metronidazole he had quite a bit of side effects the metronidazole. Symptoms improved but never resolved. He denies any chest pain or any shortness of breath he has a slight cough but is nonproductive. MD elicited complaint: abdominal pain Pertinent past history: none Onset (ago): week(s) Location: RLQ Severity: moderate Quality: cramping Exacerbating factors: nothing Relieving factors: nothing Associated Symptoms: Reports bloating, change in stool character, GI cramping, diarrhea, nausea and poor appetite; Denies anorexia, belching, change in bowel habits, chills, coffee ground emesis, constipation, dyspepsia, dysuria, excessive flatus, fever(s), heartburn, hematochezia, hematuria, hematemesis, fecal incontinence, loose stools, melena, syncope and vomiting Review of Systems Const: Denies: fever(s) or chills ENMT: Denies: throat pain, ear or mastoid pain, nasal discharge or nasal congestion Card: Denies: syncope Resp: Denies: dyspnea, productive cough or non-productive cough GI: Reports: abdominal pain, nausea, diarrhea, bloating, GI cramping and change in stool character; Denies: vomiting, hematemesis, coffee ground emesis, heartburn, constipation, belching, excessive flatus, fecal incontinence, change in bowel habits, hematochezia or melena : Denies: flank pain, dysuria, urinary frequency, urinary urgency or hematuria Skin/Breast: Denies: rash or pruritus PFSH ED PFSH: Medical History Ganglion cyst Hernia, inguinal History of asthma Hx of benign neoplasm of breast Hypertension Peyronie's disease Torn ligament Surgical History History of cholecystectomy Hx of hand surgery Hx of inguinal hernia repair Hx of right knee surgery Family History Father , at 74 CAD (coronary artery disease) Diabetes Hypertension Mother , at 83 Cancer CAD (coronary artery disease) Clotting disorder Brother Cancer Clotting disorder Family/Other Dementia Denies family history of Chronic kidney disease (CKD) Suicide Anesthesia complication Bleeding disorder Lung disease Stroke Social History Smoking and tobacco status: never smoked Alcohol intake: never Marital status: Current occupational status: retired Physical Exam Const: GENERAL APPEARANCE: cooperative and comfortable ORIENTATION/CONSCIOUSNESS: Yes awake, Yes oriented to person, Yes oriented to p lace and Yes oriented to time HENMT: COMMON NORMALS: normocephalic, atraumatic and hearing grossly normal bilaterally HEAD & SCALP: normocephalic and atraumatic Resp: COMMON NORMALS: normal respiratory effort, No retractions, No use of accessory muscles and clear to auscultation bilaterally AUSCULTATION: clear to auscultation bilaterally Cardio: COMMON NORMALS: regular rate, regular rhythm and No murmurs present (Cardio) RATE: regular rate RHYTHM: regular rhythm GI: COMMON NORMALS: No hepatosplenomegaly present AUSCULTATION: Yes normoactive bowel sounds PALPATION: Yes Tenderness to palpation present (GI) Details: RLQ, No Guarding due to palpation present (GI) and Yes No hepatosplenomegaly present Extremity: COMMON NORMALS: normal to inspection, capillary refill normal, no clubbing, cyanosis or edema, no calf tenderness and no pedal edema Neuro: SENSORIUM/ORIENTATION: Yes oriented to person, Yes oriented to place and Yes oriented to time Skin: COMMON NORMALS: no rashes or lesions noted GENERAL SKIN EXAM: no rashes or lesions noted Course Vital Signs: Vital signs: Vital Signs Temperature 98.0 F 08/15/22 15:27 Pulse Rate 101 H 08/15/22 15:27 Respiratory Rate 18 08/15/22 15:27 Blood Pressure 120/97 08/15/22 15:27 Pulse Oximetry 94 08/15/22 15:27 Oxygen Delivery Me thod 08/15/22 14:05 MDM - Abdominal Pain Medical Decision Making CT abdomen shows persistent colitis there is some concern about possible neoplastic involvement. Patient reports he had a colonoscopy within the last year that was reported to him as normal. Was concerned with his constellation symptoms that he may have COVID however that was negative as well. We will discharge patient home on Augmentin. Strongly recommend that he follow-up with his primary care doctor within the next few weeks to reevaluate if this persists he may need repeat colonoscopy or referral to gastroenterology. Additionally several noncalcified lung nodules at the lung base radiology recommends 6-month follow-up on CT. Lab Data 08/15/22 12:00 08/15/22 12:00 Labs/Radiology: Radiology Impressions Abdomen/Pelvis CT 08/15/22 11:54 IMPRESSION: 1. Diffuse thickening with luminal narrowing and enhancement involving the cecum and extending into the ascending colon similar in appearance to the prior examination suspicious for colitis. Carcinoma is not excluded. Recommend follow- up to resolution and/or further evaluation with colonoscopy. 2. Enlarged lymph nodes in the RIGHT lower quadrant progressed compared to previous. 3. Decompressed fluid-filled sigmoid colon with mucosal enhancement suspicious for infectious/inflammatory colitis. 4. Enlarged prostate measuring 4.5 CM. 5. Diffuse fatty infiltration liver. 6. Several noncalcified nodules in the lung bases similar to previous. Recommend 6 month follow-up chest CT Notified Alan Gibson DO at 08/15/2022 2:16 PM. Chest X-Ray 08/15/22 11:54 Impression: Atherosclerosis. Laboratory Results WBC 8.8 10^3/uL (4.0-10.0) 08/15/22 12:00 RBC 4.82 10^6/uL (4.1-5.3) 08/15/22 12:00 Hgb 14.2 g/dL (11.7-16.6) 08/15/22 12:00 Hct 41.9 % (42.0-52.0) L 08/15/22 12:00 MCV 86.9 fl (80-94) 08/15/22 12:00 MCH 29.5 pg (28.0-34.0) 08/15/22 12:00 MCHC 33.9 g/dL (30.0-36.0) 08/15/22 12:00 RDW 12.4 % (12.1-15.1) 08/15/22 12:00 Plt Count 201 10^3/cmm (130-400) 08/15/22 12:00 MPV 9.2 fL (7.4-10.4) 08/15/22 12:00 Neut % (Auto) 84.0 % 08/15/22 12:00 Lymph % (Auto) 6.0 % 08/15/22 12:00 [place] % (Auto) 9.0 % 08/15/22 12:00 Eos % (Auto) 0.0 % 08/15/22 12:00 Baso % (Auto) 0.5 % 08/15/22 12:00 Neut # (Auto) 7.39 10^3/uL (1.8-7.7) 08/15/22 12:00 Lymph # (Auto) 0.5 10^3/uL (0.8-4.8) L 08/15/22 12:00 [place] # (Auto) 0.8 10^3/uL (0.2-0.9) 08/15/22 12:00 Eos # (Auto) 0.0 10^3/uL (0.0-0.8) 08/15/22 12:00 Baso # (Auto) 0.0 10^3/uL (0.0-0.1) 08/15/22 12:00 Nucleated RBC % (auto) 0 % 08/15/22 12:00 Nucleated RBCs # 0.0 /100WBC 08/15/22 12:00 Sodium 133 mmol/L (136-145) L 08/15/22 12:00 Potassium 3.8 mmol/L (3.5-5.1) 08/15/22 12:00 Chloride 97 mmol/L (98-107) L 08/15/22 12:00 Carbon Dioxide 23 mmol/L (22-29) 08/15/22 12:00 Anion Gap 16.8 (5-19) 08/15/22 12:00 BUN 16 mg/dL (8-23) 08/15/22 12:00 Creatinine 1.0 mg/dL (0.7-1.2) 08/15/22 12:00 GFR Calculation 73.9 mL/min (90-130) L 08/15/22 12:00 Glucose 115 mg/dL (65-115) 08/15/22 12:00 Calculated Osmolality 278 mOsm/kg (285-295) L 08/15/22 12:00 Calcium 9.0 mg/dL (8.5-10.5) 08/15/22 12:00 Total Bilirubin 0.6 mg/dL (0.15-1.2) 08/15/22 12:00 AST 20 U/L (0-40) 08/15/22 12:00 ALT 24 U/L (0-41) 08/15/22 12:00 Alkaline Phosphatase 78 U/L (40-130) 08/15/22 12:00 Total Protein 7.0 g/dL (6.6-8.7) 08/15/22 12:00 Albumin 3.9 g/dL (3.5-5.2) 08/15/22 12:00 Globulin 3.1 g/dL (1.3-4.6) 08/15/22 12:00 Urine Color Yellow (Yellow) 08/15/22 14:24 Urine Appearance Clear (CLEAR) 08/15/22 14:24 Urine pH 7 (5-7) 08/15/22 14:24 Ur Specific [place] 1.005 (1.005-1.030) 08/15/22 14:24 Urine Protein Trace (Negative) 08/15/22 14:24 Urine Glucose (UA) Norm (Normal) 08/15/22 14:24 Urine Ketones 1+ (Negative) H 08/15/22 14:24 Urine Blood Neg (Negative) 08/15/22 14:24 Urine Nitrate Negative (Negative) 08/15/22 14:24 Urine Bilirubin Neg (Negative) 08/15/22 14:24 Urine Urobilinogen Neg mg/dL (Negative) 08/15/22 14:24 Ur Leukocyte Esterase Negative (Negative) 08/15/22 14:24 Urine RBC None /hpf (0-2) 08/15/22 14:24 Urine WBC None /hpf (0-5) 08/15/22 14:24 Ur Squamous Epith Cells None /hpf (0-5) 08/15/22 14:24 Amorphous Sediment Not Reportable 08/15/22 14:24 Urine Bacteria None /hpf (NONE) 08/15/22 14:24 Coronavirus 229E (PCR) Not detected (NOT DETECT) 08/15/22 12:01 SARS-CoV-2 (PCR) Not detected (NOT DETECT) 08/15/22 12:01 Discharge Plan Discharge Patient Disposition: Home Clinical Impression: Colitis, Pulmonary nodule Condition: Stable Prescriptions: New Augmentin 500-125 mg tablet 1 tab PO TID Qty: 10 0RF hydrocodone-acetaminophen 5-325 mg tablet 1 tab PO Q6H PRN (Reason: pain) Qty: 20 0RF ondansetron HCl 4 mg tablet 4 mg PO Q6H PRN (Reason: nausea and vomiting) Qty: 20 0RF No Action ibuprofen 200 mg tablet 200 mg PO Q6H PRN (Reason: Pain) Hold Instructions: Resume on 12/13/21. nitroglycerin 0.4 mg tablet, sublingual 0.4 mg sublingual Q5M PRN (Reason: Chest Pain) Rx Instructions: do not exceed 3 doses per episode lisinopril 40 mg tablet 40 mg PO DAILY cholecalciferol (vitamin D3) 50 mcg (2,000 unit) capsule 100 mcg PO DAILY albuterol sulfate [ProAir HFA] 90 mcg/actuation HFA aerosol inhaler 2 puff inhalation Q6H PRN (Reason: Shortness Of Breath) nitroglycerin 0.4 % (w/w) ointment 1 inch IN BID PRN (Reason: Chest Pain) triamcinolone acetonide 0.1 % cream 1 applic topical DAILY PRN (Reason: Rash) Protonix 40 mg tablet,delayed release (DR/EC) 40 mg PO DAILY 30 Days Qty: 30 3RF hydrocodone-acetaminophen 5-325 mg tablet 1 tab PO Q6H PRN (Reason: pain) Qty: 14 0RF Cipro 500 mg tablet 500 mg PO BID Qty: 14 0RF ondansetron 4 mg tablet,disintegrating 4 mg PO Q6H PRN (Reason: nausea and vomiting) Qty: 14 0RF Discharge Orders: Discharge ED (Routine); Ordered 08/15/22 Ordered By: Alan Gibson Referrals: Juanita Young MD [Primary Care Provider] - Discharge Diet: Clear Liquid Discharge Activity: Increase activity as tolerated Patient Instructions: Opioid Safety, Pain Management Activity Restrictions/Additional Instructions: Repeat CT shows persistent colitis. Recommend you start antibiotics as prescribed today and follow-up with your doctor if you have not had a colonoscopy in the last few years you should have a colonoscopy scheduled sometime soon with your primary care doctor. Coding Level of Care Code ED Cushion Stuffer for Alannah Ruiz
[2022-08-15] MEDS: sodium chloride 0.9% 1,000 ML 999 ML IV (13:20)
[2022-08-15] MEDS: iohexol 350 mg/mL 500 mL Btl (per mL) IV (13:43)
[2022-08-15 13:59] LABS: Adenovirus Not Detected (NOT DETECT); Chlamydia Pneumoniae Not Detected (NOT DETECT); Coronavirus 229E,HKU1,NL63,OC4 Not Detected (NOT DETECT); Human Metapneumovirus Not Detected (NOT DETECT); Human Rhinovirus/Enterovirus Not Detected (NOT DETECT); Influenza A Not Detected (NOT DETECT); Influenza A H1 Not Detected (NOT DETECT); Influenza A H1-2009 Not Detected (NOT DETECT); Influenza A H3 Not Detected (NOT DETECT); Influenza B Not Detected (NOT DETECT); Mycoplasma Pneumoniae Not Detected (NOT DETECT); Parainfluenza Virus Type 1 Not Detected (NOT DETECT); Parainfluenza Virus Type 2 Not Detected (NOT DETECT); Parainfluenza Virus Type 3 Not Detected (NOT DETECT); Parainfluenza Virus Type 4 Not Detected (NOT DETECT); Respiratory Syncytial Virus A Not Detected (NOT DETECT); Respiratory Syncytial Virus B Not Detected (NOT DETECT); SARS-COV-2 Not Detected (NOT DETECT)
[2022-08-15 14:05] VITALS: BP 109/79; PULSE 93; O2SAT 93
[2022-08-15 14:57] LABS: Add Urine Microscopic? YES; Bilirubin Urine Neg (Negative); Blood Urine Neg (Negative); Glucose Urine UA Norm (Normal); Ketones Urine 1+ (Negative); Leukocyte Esterase Urine Negative (Negative); Nitrate Urine Negative (Negative); Protein Urine Trace (Negative); Specific Gravity, Urine 1.005 (1.005-1.030); Urine Appearance Clear (CLEAR); Urine Color Yellow (Yellow); Urobilinogen Urine Neg (Negative); pH Urine 7 (5-7)
[2022-08-15 15:00] LABS: Add Urine Culture? No
[2022-08-15 15:27] VITALS: BP 120/97; PULSE 101; RESP 18; TEMP 36.7; O2SAT 94
--- NOTE | 2022-08-16 11:05 | DCPLANNER ---
assistant project manager had message to schedule an outpatient CT for patient. Patient has [facility] insurance, this test cannot be ordered out of the ER. assistant project manager sent patients information to the [facility], that patient needed this test in the next 6 months. assistant project manager sent patients information to the [facility].
== END 2022-08-15 15:29 | disposition home or self-care (01) ==
PROVIDERS: Emergency Provider Family Medicine; PCP Family Medicine
DX: K52.9 Noninfective gastroenteritis and colitis, unspecified (principal); R91.1 Solitary pulmonary nodule; Z20.822 Contact with and (suspected) exposure to COVID-19; K76.0 Fatty (change of) liver, not elsewhere classified; I10 Essential (primary) hypertension
CPT/HCPCS: 71045; 74177; 80053; 81001; 85025; 87635; 93005; 96360; 99285; J7030; Q9967

== ENCOUNTER → 2022-09-10 15:35 | Outpatient (BNVA) | payer OTHER, SELFPAY | PROVIDERS: PCP Family Medicine; Visit Provider Otolaryngology | DX: Z71.1 Person with feared health complaint in whom no diagnosis is made (principal); K11.7 Disturbances of salivary secretion | CPT/HCPCS: 99212; 99213 ==

== ENCOUNTER → 2022-12-25 15:33 | Outpatient (BNVA) | payer OTHER, SELFPAY | PROVIDERS: PCP Family Medicine; Visit Provider Otolaryngology | DX: R49.0 Dysphonia (principal); J38.7 Other diseases of larynx | CPT/HCPCS: 31575; 99213 ==

== ENCOUNTER 2023-03-12 17:20 | Emergency (ER) | payer OTHER, SELFPAY ==
[2023-03-12 17:35] VITALS: BP 113/71; PULSE 69; RESP 17; TEMP 36.7; O2SAT 98; BMI 22.4
--- NOTE | 2023-03-12 19:59 | ED_ITS ---
HPI - Headache General: Chief Complaint: Headache Stated Complaint: right side head pain Time Seen by Provider: 03/12/23 19:39 Source: patient Mode of arrival: ambulatory Limitations: no limitations History of Present Illness: Patient is a 72-year-old male who presents the emergency room with a headache and right ear pain. Patient reports that this pain started approximately 2 weeks ago and has progressively gotten worse and has not subsided. Patient voicing concern for possible TIA as he has had previous TIAs in the past with headache symptoms. Patient also has a complaint of upper back pain. Reports allergy symptoms of sinus congestion and utilizing loratadine at home. States he takes 500 mg of Tylenol nightly for headache and it relieves pain minimal. Current pain score is 3/10 on pain scale. No other complaints at this time. MD elicited complaint: headache Associated symptoms: Deny chest pain, fever(s), nausea, rash or vomiting Review of Systems Const: Denies: fever(s) or chills Eyes: Denies: change in vision or blurry vision ENMT: Reports: ear or mastoid pain (right ear) and nasal congestion Card: Denies: chest pain or palpitations Resp: Denies: dyspnea or productive cough GI: Denies: abdominal pain, nausea or vomiting : Denies: flank pain or difficulty urinating Musc: Reports: back pain Skin/Breast: Denies: rash or pruritus PFSH ED PFSH: Medical History Ganglion cyst Hernia, inguinal History of asthma Hx of benign neoplasm of breast Hypertension Peyronie's disease Torn ligament Surgical History History of cholecystectomy History of colonoscopy 2006 Hx of hand surgery Hx of inguinal hernia repair Hx of right knee surgery Family History Father , at 74 CAD (coronary artery disease) Diabetes Hypertension Mother , at 83 Cancer CAD (coronary artery disease) Clotting disorder Brother Cancer Clotting disorder Family/Other Dementia Denies family history of Chronic kidney disease (CKD) Suicide Anesthesia complication Bleeding disorder Lung disease Stroke Social History Smoking and tobacco status: never smoked Alcohol intake: never Substance/Drug Use: never Marital status: Current occupational status: retired Physical Exam Const: COMMON NORMALS: patient oriented x3 and alert GENERAL APPEARANCE: cooperative ORIENTATION/CONSCIOUSNESS: Yes awake HENMT: COMMON NORMALS: normocephalic, external ears normal, EAC's normal and TM's normal bilaterally HEAD & SCALP: normocephalic EXTERNAL EAR: Yes external ears normal EXTERNAL AUDITORY CANAL: EAC's normal TYMPANIC MEMBRANE: TM's normal bilaterally Eye: COMMON NORMALS: Equal, round and reactive pupils present and EOMs intact bilaterally GENERAL EYE: appearance normal, both eyes and all related structures PUPIL: Yes Equal, round and reactive pupils present Neck/C-Spine: COMMON NORMALS: full ROM and no lymphadenopathy GENERAL: Yes normal visual inspection Chest: CHEST: Yes Symmetrical chest wall rise Resp: COMMON NORMALS: normal respiratory effort and clear to auscultation bilaterally AUSCULTATION: clear to auscultation bilaterally Cardio: COMMON NORMALS: S1 normal heart sound present HEART SOUNDS: S1 normal heart sound present GI: COMMON NORMALS: Normal to inspection, nondistended, normoactive bowel sounds present Neuro: COMMON NORMALS: patient oriented x3 SENSORIUM/ORIENTATION: Yes alert Course Vital Signs: Vital signs: Vital Signs Temperature 98.1 F 03/12/23 17:35 Pulse Rate 69 03/12/23 17:35 Respiratory Rate 17 03/12/23 17:35 Blood Pressure 113/71 03/12/23 17:35 Pulse Oximetry 98 03/12/23 17:35 Oxygen Delivery Me thod Room Air 03/12/23 17:35 MDM - Headache Medical Decision Making Patient presents with headaches atypical in nature and sharp pains that are just intermittent he has no headache currently has no tenderness over his temporal artery no signs of temporal arteritis he is stable for discharge we will get him follow-up with neurology Medical Records I reviewed the patient's medical records. Lab Data I reviewed the patient's lab results. No radiology studies performed this visit Discharge Plan Discharge Patient Disposition: Home Clinical Impression: Headache Condition: Stable Prescriptions: No Action ibuprofen 200 mg tablet 200 mg PO Q6H PRN (Reason: Pain) Hold Instructions: Resume on 12/13/21. nitroglycerin 0.4 mg tablet, sublingual 0.4 mg sublingual Q5M PRN (Reason: Chest Pain) Rx Instructions: do not exceed 3 doses per episode lisinopril 40 mg tablet 40 mg PO DAILY cholecalciferol (vitamin D3) 50 mcg (2,000 unit) capsule 100 mcg PO DAILY albuterol sulfate [ProAir HFA] 90 mcg/actuation HFA aerosol inhaler 2 puff inhalation Q6H PRN (Reason: Shortness Of Breath) nitroglycerin 0.4 % (w/w) ointment 1 inch NE BID PRN (Reason: Chest Pain) triamcinolone acetonide 0.1 % cream 1 applic topical DAILY PRN (Reason: Rash) Protonix 40 mg tablet,delayed release (DR/EC) 40 mg PO DAILY 30 Days Qty: 30 3RF hydrocodone-acetaminophen 5-325 mg tablet 1 tab PO Q6H PRN (Reason: pain) Qty: 14 0RF Cipro 500 mg tablet 500 mg PO BID Qty: 14 0RF ondansetron 4 mg tablet,disintegrating 4 mg PO Q6H PRN (Reason: nausea and vomiting) Qty: 14 0RF Augmentin 500-125 mg tablet 1 tab PO TID Qty: 10 0RF hydrocodone-acetaminophen 5-325 mg tablet 1 tab PO Q6H PRN (Reason: pain) Qty: 20 0RF ondansetron HCl 4 mg tablet 4 mg PO Q6H PRN (Reason: nausea and vomiting) Qty: 20 0RF Discharge Orders: Discharge ED (Routine); Ordered 03/12/23 Ordered By: Arianne Wayne Referrals: Juanita Young MD [Primary Care Provider] - Justine Solis MD [Physician] - 1-3 days Discharge Diet: Advance as tolerated Discharge Activity: Resume usual activity Patient Instructions: Acute Headache (ED) Coding Level of Care Code ED Waxing Machine Operator for Alannah Ruiz
--- NOTE | 2023-03-13 11:12 | PC.SOCIAL ---
Neurology Referral Referral message sent at this time. Clinic to contact patient with appt date/time.
== END 2023-03-12 20:40 | disposition home or self-care (01) ==
PROVIDERS: Emergency Provider Emergency Medicine; PCP Family Medicine
DX: R51.9 Headache, unspecified (principal); I10 Essential (primary) hypertension
CPT/HCPCS: 99281

== ENCOUNTER → 2023-12-04 15:14 | Outpatient (BNVA) | payer OTHER, SELFPAY | PROVIDERS: PCP Nurse Practitioner; Referring Provider Nurse Practitioner; Visit Provider Specialist | DX: M17.11 Unilateral primary osteoarthritis, right knee (principal); S46.011A Strain of muscle(s) and tendon(s) of the rotator cuff of right shoulder, initial encounter; X58.XXXA Exposure to other specified factors, initial encounter | CPT/HCPCS: 73030; 99204 ==

== ENCOUNTER 2023-12-19 15:42 | Outpatient (RCR) | payer OTHER, SELFPAY | END 2024-01-08 23:59 | disposition home or self-care (01) | LOC: SPT 15:42 | PROVIDERS: Visit Provider Specialist | DX: M25.511 Pain in right shoulder (principal) | CPT/HCPCS: 97110; 97161; 97530 ==

== ENCOUNTER 2024-01-09 06:00 | Outpatient (RCR) | payer OTHER, SELFPAY | END 2024-02-08 23:59 | disposition home or self-care (01) | LOC: SPT 06:00 | PROVIDERS: Visit Provider Specialist | DX: M25.511 Pain in right shoulder (principal) | CPT/HCPCS: 97110 ==

== ENCOUNTER → 2024-01-27 15:09 | Outpatient (BNVA) | payer OTHER, SELFPAY | PROVIDERS: Visit Provider Nurse Practitioner | DX: M19.011 Primary osteoarthritis, right shoulder (principal); M25.811 Other specified joint disorders, right shoulder | CPT/HCPCS: 99214 ==

== ENCOUNTER 2024-02-09 06:00 | Outpatient (RCR) | payer OTHER, SELFPAY | END 2024-02-11 23:59 | disposition home or self-care (01) | LOC: SPT 06:00 | PROVIDERS: PCP Nurse Practitioner; Visit Provider Specialist | DX: M25.811 Other specified joint disorders, right shoulder (principal); M19.011 Primary osteoarthritis, right shoulder | CPT/HCPCS: 97110; 99214 ==

== ENCOUNTER 2024-02-26 10:16 | Outpatient (CLI) | payer OTHER, SELFPAY ==
[2024-02-26 10:44] LABS: Add Urine Microscopic? NO
[2024-02-26 10:52] LABS: Basophils % 0.5 %; Eosinophils # 0.2 10^3/uL (0.0-0.8); Eosinophils % 2.8 %; Hematocrit 40.4 % (37-53); Lymphocytes # 1.6 10^3/uL (0.8-4.8); Lymphocytes % 25.8 %; Mean Corpuscular HGB Conc 33.7 g/dL (30-55); Mean Corpuscular Hemoglobin 29.8 pg (27-33); Mean Corpuscular Volume 88.6 fl (82-101); Mean Platelet Volume 9.2 fL (7.4-10.4); Monocytes # 0.8 10^3/uL (0.2-0.9); Monocytes % 12.9 %; Neutrophils # 3.54 10^3/uL (1.8-7.7); Neutrophils % 57.7 %; Nucleated Red Blood Cells % 0 %; Platelet Count 182 10^3/cmm (157-399); Red Blood Count 4.56 10^6/uL (3.85-5.65); Red Cell Distribution Width 12.3 % (12.1-15.1); White Blood Count 6.13 10^3/uL (3.29-11.43)
[2024-02-26 11:09] LABS: Bilirubin Urine Neg (Negative); Blood Urine Neg (Negative); Glucose Urine UA Norm (Normal); Ketones Urine Negative (Negative); Leukocyte Esterase Urine Negative (Negative); Nitrate Urine Negative (Negative); Protein Urine Neg (Negative); Urine Appearance Clear (CLEAR); Urine Color Yellow (Yellow); Urobilinogen Urine Norm (Negative); pH Urine 5 (5-7)
[2024-02-26 11:10] LABS: Charge for UA Resulting for Rev
[2024-02-26 11:12] LABS: Alanine Aminotransferase 16 U/L (0-41); Albumin Level 4.1 g/dL (3.5-5.2); Alkaline Phosphatase 97 U/L (40-130); Anion Gap 13.1 (5-19); Aspartate Amino Transferase 16 U/L (0-40); Blood Urea Nitrogen 17 mg/dL (8-23); Calcium 9.1 mg/dL (8.5-10.5); Carbon Dioxide 25 mmol/L (22-29); Chloride 103 mmol/L (98-107); Globulin 2.7 g/dL (1.3-4.6); Glucose 89 mg/dL (65-115); Osmolality Calculated 285 mOsm/kg (285-295); Potassium 4.1 mmol/L (3.5-5.1); Sodium 137 mmol/L (136-145); Total Bilirubin 0.4 mg/dL (0.15-1.2); Total Protein 6.8 g/dL (6.6-8.7)
== END 2024-02-26 10:17 | disposition home or self-care (01) ==
PROVIDERS: PCP Nurse Practitioner; Visit Provider Nurse Practitioner
DX: M25.811 Other specified joint disorders, right shoulder (principal)
CPT/HCPCS: 36415; 80053; 81003; 85025

== ENCOUNTER 2024-03-10 06:33 | Day surgery (SDC) | payer OTHER, SELFPAY ==
[2024-03-10] VITALS (10 sets, daily range): BP systolic 103–131; BP diastolic 71–81; PULSE 54–67; RESP 11–20; TEMP 36.1–36.3; O2SAT 92–97; BMI 24.1
--- NOTE | 2024-03-10 06:59 | W.PM.OPSUD ---
Surgery/Procedure H&P Update DATE OF PROCEDURE: March 10, 2024 DATE H&P PERFORMED: 02/14/24 H&P UPDATE INFORMATION: I have reviewed H&P completed within last 30 days, I have examined patient prior to procedure, No changes to prior documentation and H&P is in [facility] EMR on date indicated PLANNED PROCEDURE: Operation Date: 03/10/24 08:10 Proposed Procedures p Acromioplasty(Right) - Rafia Denson MD s Distal Clavicle Resection(Right) - Rafia Denson MD s Rotator Cuff Repair - Arthroscopy(Right) - Rafia Denson MD Related Problem List Diagnoses (1) Rotator cuff arthropathy of right shoulder: (2) Impingement of right shoulder: (3) Acromioclavicular joint arthritis: Qualifiers: Laterality: right Qualified Code(s): M19.011 - Primary osteoarthritis, right shoulder
[2024-03-10] MEDS: gabapentin 300 mg Capsule PO (07:05)
[2024-03-10] MEDS: CELEcoxib 200 mg Capsule 400 MG PO (07:05)
[2024-03-10] MEDS: acetaminophen 1,000 MG/100 ML PIGGYBACK 400 MG IV (07:06)
[2024-03-10] MEDS: sodium chloride 0.9% 1,000 ML 30 ML IV (07:07)
--- NOTE | 2024-03-10 07:30 | ANES.PREANE2 ---
Pre-Anesthetic Assessment Height/Weight: Height 5 ft 5 in Weight 145 lb Temp Pulse Resp BP Pulse Ox O2 Del Method 97.4 F L 62 18 118/81 96 Room Air 03/10/24 06:48 03/10/24 06:48 03/10/24 06:48 03/10/24 06:48 03/10/24 06:48 03/10/24 06:48 Preop Diagnosis: Rotator cuff tear Operation Date: 03/10/24 08:10 Proposed Procedures p Acromioplasty(Right) - Rafia Denson MD s Distal Clavicle Resection(Right) - Rafia Denson MD s Rotator Cuff Repair - Arthroscopy(Right) - Rafia Denson MD Was Beta Jared taken within 24 hours: N/A Was Clonidine taken within 24 hours: N/A Last intake: Intake Last Liquid Date 03/09/24 Last Liquid Time 22:00 Last Solid Date 03/09/24 Last Solid Time 22:00 Social No alcohol and No tobacco Exam alert, oriented x 3, clear to auscultation bilaterally and regular rate & rhythm Airway Submandibular: within normal limits Cervical ROM: within normal limits Mallampati: Class II Dentition: full Comments: Comments: Few missing teeth Anesthetic Plan ASA status: 3 Anesthesia: General Other: Patient reports history of cardiac arrest during his knee surgery in the 80s Patient also reports having a pneumothorax following a cholecystectomy NPO since midnight History of seasonal allergies and asthma, very occasional albuterol use History of GERD on omeprazole Hypertension controlled with lisinopril Labs 02/26/2024 reviewed acceptable for procedure Previous EKG showing sinus tachycardia with PVCs METs greater than 4 Plan for GETA with preop peripheral nerve block Medications/Allergies Home Medications Medication Instructions Recorded Confirmed Last Taken Type ibuprofen 200 mg tablet 200 mg PO Q6H PRN Pain 08/22/20 03/09/24 03/06/24 History lisinopril 40 mg tablet 20 mg PO DAILY 09/06/20 03/09/24 03/09/24 History nitroglycerin 0.4 mg sublingual 0.4 mg sublingual Q5M PRN Chest 09/06/20 03/09/24 Unknown History tablet Pain albuterol sulfate 90 mcg/actuation 2 puff inhalation Q6H PRN 04/14/21 09/30/24 05/31/22 History aerosol inhaler (ProAir HFA) Shortness Of Breath cholecalciferol (vitamin D3) 50 100 mcg PO DAILY 09/21/20 03/09/24 03/09/24 History mcg (2,000 unit) capsule triamcinolone acetonide 0.1 % 1 applic topical DAILY PRN Rash 09/21/20 03/09/24 Unknown History topical cream omeprazole 40 mg capsule,delayed 40 mg PO BID 02/14/24 03/09/24 03/09/24 History release aspirin 81 mg tablet 81 mg PO DAILY 03/09/24 03/09/24 02/24/24 History vitamin B12 0.5 mg-folic acid 1 mg 1 tab PO DAILY 03/09/24 03/09/24 03/09/24 History tablet Allergies Allergy/AdvReac Type Severity Reaction Status Date / Time erythromycin base Allergy Unknown Verified 03/10/24 06:43 tramadol Allergy Unknown Verified 03/10/24 06:43 Current Medications Generic Name Dose Route Start Last Admin Trade Name Freq PRN Reason Stop Dose Admin Sodium Chloride 1,000 mls @ 30 mls/hr 03/10/24 06:45 03/10/24 07:07 Sodium Chloride 0.9% IV 03/11/24 06:44 30 mls/hr .Q24H SANCHO Administration PFSH Anesthesia Medical History Acromioclavicular joint arthritis Impingement of right shoulder Hypertension Hernia, inguinal Ganglion cyst Torn ligament History of asthma Hx of benign neoplasm of breast Peyronie's disease Surgical History History of colonoscopy 2006 Hx of inguinal hernia repair Hx of hand surgery History of cholecystectomy Hx of right knee surgery Family History Father , at 74 CAD (coronary artery disease) Diabetes Hypertension Mother , at 83 Cancer CAD (coronary artery disease) Clotting disorder Brother Cancer Clotting disorder Family/Other Dementia Denies family history of Chronic kidney disease (CKD) Suicide Anesthesia complication Bleeding disorder Lung disease Stroke Social History Smoking and tobacco/nicotine status: never used tobacco/nicotine Alcohol intake: never Substance/Drug Use: never Marital status: Current occupational status: retired Data Anesthesia Cardiac Studies: Echocardiogram 12/19/20 Sestamibi Stress Test (Cardiology) 11/01/20
--- NOTE | 2024-03-10 07:50 | ANES.PROC ---
Anesthesia Procedures Procedure/Date: 03/10/24 Nerve Block ^: Nerve Block 1: Main Anesthesia: other (100mcg fentanyl) Time Out Performed: Yes Consent: requested by attending/covering physician and from patient Nerve block location: interscalene Anesthesia monitors applied: pulse oximetry, EKG, BP cuff and oxygen Nerve block position: semi sitting Anesthetic Used: ropivicaine 0.5% Amount of anesthesia used (mL): 30 Ultrasound used to: recognize landmarks Nerve Stimulator Used?: Yes Interscalene/Femoral BLK: other needle (pjunk) Injection: neg aspiration of heme Patient Tolerated Procedure: well Complications: none
--- NOTE | 2024-03-10 08:02 | PC.NURSE ---
Right shoulder block done by Dr. Hopson
[2024-03-10] MEDS: ceFAZolin 2,000 mg SDV 2000 MG IVP (08:05)
[2024-03-10] MEDS: ceFAZolin 1,000 mg SDV 1000 MG IRRIGATION (09:01)
--- NOTE | 2024-03-10 09:44 | PM.OP ---
Operative Report Date of procedure: March 10, 2024 Pre-op diagnosis: Right shoulder impingement, possible rotator cuff tear, and acromioclavicular joint osteoarthritis Post-op diagnosis: Right shoulder impingement, possible rotator cuff tear, and acromioclavicular joint osteoarthritis Post-op findings: Inflamed bursa, severe impingement and degenerative osteoarthritis of the acromioclavicular joint. No evidence of rotator cuff tear. Procedure done: Open right acromioplasty with distal clavicle resection Implants: None Specimens removed/disposition: None Surgeon: Rafia Denson MD Outboard Motor Mechanic: Giselle Tineo Outboard Motor Mechanic: Who services were required for positioning, retraction, exposure, closure, and completion of the surgical procedure. Anesthesia: General (Intubated, ASA 3 with preoperative regional block) Estimated blood loss (mL): 5 IV fluids (mL): 1,000 Urine output (mL): 0 (No Acevedo) Complications: None Findings: Significant subacromial impingement with inflammation of the bursa and wear on the rotator cuff. No constantin rotator cuff tear to visual or palpation. Also, severe degenerative osteoarthritis of the acromioclavicular joint. Condition: stable Disposition: PACU (Then return to same-day surgery for discharge to home) Brief History: This 73-year-old gentleman presented to the office complaining of right shoulder pain. He has completed formal physical therapy, but he could not tell much of a difference with his symptoms from that. Additionally, he had an MRI. The patient had tried and failed formal and home physical therapy, anti-inflammatory medications, activity modifications, and rest. Therefore, when the MRI demonstrated mild impingement and degenerative changes within the acromioclavicular joint, the patient wished to proceed with operative intervention. Risks and complications were discussed with him, and consents were signed. Questions were answered at that time. Procedure: The patient was brought to the operating theater and underwent general intubated anesthesia, ASA 3 which was well-tolerated. The patient was placed in a beachchair position and subsequently the right upper extremity was prepped and draped in the usual fashion utilizing DuraPrep. The arm was draped free. A surgical pause was performed prior to commencement of the surgical procedure. At the time of the surgical pause, we confirmed the site and side of surgery as well as administration of appropriate preoperative antibiotics Ancef 2 g. MRI was also reviewed at that time. Findings on the MRI included impingement and acromioclavicular joint osteoarthritis without evidence of full rotator cuff tear. Following the surgical pause, an incision was made at approximately the level of the acromioclavicular joint extending across the anterolateral corner of the acromion and distally as necessary. Care was taken to avoid injury to the axillary nerve by limiting the distal extent of the incision. Dissection continued through skin and soft tissues using a scalpel. Hemostasis was obtained using electrocautery. Soft tissues were elevated off the acromion. An acromioplasty was then accomplished using a combination of a saw and a power rasp. With this, we were able to remove compression caused by the acromion. The rotator cuff was then evaluated to look for tears. There was bursal inflammation, but in evaluating the rotator cuff, there was some irritation from the impingement, but no evidence of rotator cuff tear. Evaluation included palpation and visualization. The shoulder was placed through full range of motion to assure that impingement had been relieved and no rotator cuff could be visualized. The acromioclavicular joint was exposed. A saw was then used to resect the distal clavicle without difficulty. The undersurface of the clavicle was palpated and was slightly further debrided. A power rasp was used to further smooth the area. When this was felt to be adequately resected, the wound was irrigated. Attention was then directed to closure. The wound was irrigated and closure was accomplished with 0 Vicryl in the capsular tissues overlying the acromioclavicular joint area as well as over the acromion and down into the deltoid muscle. 2-0 Monocryl was used to close the subcutaneous tissues followed by 4-0 Monocryl subcuticular closure. This was followed by Dermabond, Steri-Strips, and OpSite. The patient was placed in a sling and was returned to the recovery room in satisfactory condition. The patient will be discharged to home to follow-up in the office as scheduled. There were no complications and no specimens. Related Problem List Diagnoses (1) Impingement of right shoulder: (2) Acromioclavicular joint arthritis: (3) Rotator cuff arthropathy of right shoulder:
--- NOTE | 2024-03-10 11:01 | ANE.PACU2 ---
Inpatient post-anesthesia follow up: Airway intact: Yes Vital signs: Temperature 97 F Pulse Rate 56 Respiratory Rate 18 Blood Pressure 103/76 Pulse Oximetry 95 Oxygen Delivery Me thod Room Air Oxygen Flow Rate Fraction of Inspir ed Oxygen Hydration adequate: Yes Nausea and vomiting: No Pain level: 1 Mental status: Baseline
== END 2024-03-10 11:02 | disposition home or self-care (01) ==
PROVIDERS: PCP Nurse Practitioner; Visit Provider Specialist
PROC: (CPT 23130; principal; 2024-03-10 08:00)
PROC: (CPT 23120; 2024-03-10 08:00)
DX: M25.811 Other specified joint disorders, right shoulder (principal); M19.011 Primary osteoarthritis, right shoulder; K21.9 Gastro-esophageal reflux disease without esophagitis; I10 Essential (primary) hypertension
CPT/HCPCS: 23130; 29824; J0131; J0690; J1100; J2405; J2704; J3010; J3490; J7030

== ENCOUNTER → 2024-03-23 07:44 | Outpatient (BNVA) | payer OTHER, SELFPAY | PROVIDERS: PCP Nurse Practitioner; Visit Provider Nurse Practitioner | DX: M12.811 Other specific arthropathies, not elsewhere classified, right shoulder (principal); M25.811 Other specified joint disorders, right shoulder; Z98.890 Other specified postprocedural states | CPT/HCPCS: 99024 ==

== ENCOUNTER → 2024-04-22 10:01 | Outpatient (BNVA) | payer OTHER, SELFPAY | PROVIDERS: PCP Nurse Practitioner; Visit Provider Nurse Practitioner | DX: Z98.890 Other specified postprocedural states (principal); M12.811 Other specific arthropathies, not elsewhere classified, right shoulder; M25.811 Other specified joint disorders, right shoulder | CPT/HCPCS: 99024; 99213 ==

== ENCOUNTER → 2024-12-02 09:48 | Outpatient (BNVA) | payer OTHER, SELFPAY | PROVIDERS: PCP Nurse Practitioner; Visit Provider Specialist | DX: M17.11 Unilateral primary osteoarthritis, right knee (principal) | CPT/HCPCS: 73560; 73565; 99214 ==

== ENCOUNTER 2024-12-24 07:49 | Outpatient (CLI) | payer OTHER, SELFPAY ==
--- NOTE | 2024-12-24 07:53 | MR_ITS ---
WS: [id number] MRI RIGHT KNEE PRE AND POST ARTHROGRAM. COMPARISON: Knee radiograph 12/02/2024 Multiplanar, multisequence imaging is performed with and without intra-articular contrast injection. History: RIGHT knee pain, history of prior surgery. Prearthrogram: Large suprapatellar joint effusion and a large amount of edema surrounding the knee. Intra-articular bodies are noted within a small Cool's cyst. ACL and PCL are intact. Medial menisci are intact. Diffuse abnormal signal in the anterior horn lateral meniscus extending to the superior and intra-articular surfaces. Blunting of the free edge of the posterior horn with partial extrusion from the joint line. Severe lateral compartment joint space narrowing with bone upon bone. There is extensive edema in the lateral femoral condyle and tibial plateau with numerous osteochondral defects, greatest along the lateral tibial plateau. Complete loss of cartilage. Marginal osteophytes and extruded menisci. Displacement of the fibular collateral ligament by osteophytes and extruded meniscus. Moderate narrowing of the medial compartment with mild chondromalacia. Mild narrowing of the patellofemoral compartment. Cartilage remains intact. No marrow edema. Fluid in the infrapatellar fat pad. Intact MCL with a small amount of adjacent fluid. Post arthrogram: Good contrast opacification of the joint. Good distention of the joint with several plica and septa noted within the large joint effusion. There are a few small air foci from the contrast injection within the joint effusion. Small intra-articular bodies in the popliteus tendon bursa. Reidentified is a complex tear in the anterior horn of the lateral meniscus. Partially extruded lateral posterior horn. Small amount of contrast extends into the numerous osteochondral defects along the lateral tibial plateau. MR/MR knee RT wo/w con [id number] IMPRESSION: 1. Severe lateral compartment degenerative changes with bone upon bone and com plete loss of cartilage and extensive osteochondral lesions along the tibial pl ateau. 2. Complex tear anterior horn lateral meniscus. 3. Blunting free edge posterior horn lateral meniscus with partial extrusion f rom the joint. 4. Moderate narrowing the medial compartment with mild chondromalacia. 5. Large suprapatellar joint effusion and a small Cool's cyst. Attempted aspi ration of the joint effusion with yielded minimal fluid. The fluid that was asp irated is very thick. 6. Soft tissue edema surrounding the knee. 7. Small intra-articular bodies are noted in the Cool's cyst and in the popli teus tendon bursa.
--- NOTE | 2024-12-24 08:00 | IR_ITS ---
WS: [id number] RIGHT KNEE ARTHROGRAM (FLUOROSCOPY) RIGHT knee arthrogram was performed in fluoroscopy prior to MRI evaluation. HISTORY: right knee pain COMPARISON: None. FLUOROSCOPY TIME: 0min [id number] # of spot films: 3 Procedure, risks and complications were explained to the patient. Complications include but not limited to bleeding, infection and contrast reaction. Current medications are reviewed. Skin is cleansed with ChloraPrep. Skin is anesthetized with 1% buffered lidocaine. 22-gauge needle is inserted into the suprapatellar joint. Approximately 40 cc of gadolinium mixture injected without complication. Patient will proceed to MRI evaluation immediately. No complications were encountered. Patient is instructed to watch for post procedure infection or bleeding. Patient is also instructed to contact the radiology department with any concerns. Patient does have a large joint effusion. Attempted aspiration without significant success. The fluid is very thick. IR/[place] [id number] IMPRESSION: Uncomplicated RIGHT knee joint injection prior to MRI arthrogram.
[2024-12-24] MEDS: gadobenate dimeglumine 20 mL vial 3 ML IV (09:09)
[2024-12-24] MEDS: iohexol 240 mg/mL 50 mL Btl 25 ML INTRA-ARTI (09:10)
== END 2024-12-24 07:50 | disposition home or self-care (01) ==
LOC: RAD 07:50
PROVIDERS: PCP Nurse Practitioner; Visit Provider Specialist
DX: M17.11 Unilateral primary osteoarthritis, right knee (principal); S83.206A Unspecified tear of unspecified meniscus, current injury, right knee, initial encounter; M25.461 Effusion, right knee; X58.XXXA Exposure to other specified factors, initial encounter
CPT/HCPCS: 27369; 73723; 77002; A9577; J9999; Q9966

== ENCOUNTER → 2024-12-28 07:39 | Outpatient (BNVA) | payer OTHER, SELFPAY | PROVIDERS: PCP Nurse Practitioner; Visit Provider Specialist | DX: M17.11 Unilateral primary osteoarthritis, right knee (principal) | CPT/HCPCS: 99214 ==

== ENCOUNTER → 2025-01-27 08:38 | Outpatient (BNVA) | payer OTHER, SELFPAY | PROVIDERS: PCP Nurse Practitioner; Visit Provider Specialist | DX: M17.11 Unilateral primary osteoarthritis, right knee (principal); Z01.818 Encounter for other preprocedural examination | CPT/HCPCS: 36415; 73560; 73565; 80053; 81001; 85025; 99214 ==

== ENCOUNTER 2025-02-18 10:09 | Outpatient (CLI) | payer OTHER, SELFPAY ==
--- NOTE | 2025-02-18 10:30 | CT_ITS ---
WS: [id number] CT RIGHT knee, noncontrast HISTORY: PER [facility] PROTOCOL TECHNIQUE: Protocol for [facility] total knee replacement has been obtained. This includes axial imaging through the RIGHT hip, RIGHT knee and RIGHT ankle. DLP: 928.59 mGy.cm COMPARISON: 01/27/2025 Hips: Mild narrowing of the hip joints. No destructive bone lesions. Bilateral inguinal hernias contain fat only, LEFT greater than RIGHT. RIGHT knee: Mild to moderate tricompartment joint space narrowing. Minimal osteophytosis. Moderate joint effusion. Slight lateral subluxation of the patella. RIGHT ankle: Negative. CT/CT knee RT [facility] [id number] IMPRESSION: CT imaging provided for [facility] robotic total knee replacement.
== END 2025-02-18 10:10 | disposition home or self-care (01) ==
LOC: RAD 10:10
PROVIDERS: PCP Nurse Practitioner; Visit Provider Specialist
DX: M17.11 Unilateral primary osteoarthritis, right knee (principal)
CPT/HCPCS: 73700

== ENCOUNTER → 2025-02-23 08:45 | Outpatient (BNVA) | payer OTHER, SELFPAY | PROVIDERS: PCP Nurse Practitioner; Visit Provider Family Medicine | DX: Z01.818 Encounter for other preprocedural examination (principal) | CPT/HCPCS: 93005 ==

== ENCOUNTER 2025-03-11 12:44 | Observation (INO) | payer OTHER, SELFPAY ==
[2025-03-11] VITALS (41 sets, daily range): BP systolic 116–148; BP diastolic 69–98; PULSE 47–101; RESP 14–22; TEMP 35.9–36.8; O2SAT 90–100; BMI 25.9
--- NOTE | 2025-03-11 06:02 | ANES.PREANE2 ---
Pre-Anesthetic Assessment Height/Weight: Height 5 ft 5 in Preop Diagnosis: Knee arthritis Operation Date: 03/11/25 07:00 Proposed Procedures p RIGHT Christiano Robot Total Knee Arthroplasty(Right) - Rafia Denson MD Was Beta Jared taken within 24 hours: N/A Was Clonidine taken within 24 hours: N/A Social No alcohol and No tobacco Exam alert, oriented x 3, clear to auscultation bilaterally and regular rate & rhythm Airway Submandibular: within normal limits Cervical ROM: within normal limits Mallampati: Class II Dentition: full Comments: Comments: Few missing teeth. Ness Anesthetic Plan ASA status: 3 Anesthesia: General Other: Patient reports history of cardiac arrest during his knee surgery in the Patient also reports having a pneumothorax following a cholecystectomy prior GETA for shoulder surgery with us in march 2024 w/o issues Patient adamantly against spinal due to bad experience during training in which he received a spinal for a hernia procedure NPO since midnight History of seasonal allergies and asthma, very occasional albuterol use History of GERD on omeprazole Prior hypertension, recently took him off his lisinopril Labs 01/27/25 reviewed acceptable for procedure Previous EKG sinus rhythm METs greater than 4 Plan for general anesthesia Medications/Allergies Home Medications ?Medication ?Instructions ?Recorded ?Confirmed ?Last Taken ?Type ibuprofen 200 mg tablet 200 mg PO Q6H PRN Pain 08/22/20 03/10/25 03/09/25 History nitroglycerin 0.4 mg sublingual 0.4 mg sublingual Q5M PRN Chest 09/06/20 03/10/25 Unknown History tablet Pain albuterol sulfate 90 mcg/actuation 2 puff inhalation Q6H PRN 09/21/20 03/10/25 11/07/21 History aerosol inhaler (ProAir HFA) Shortness Of Breath cholecalciferol (vitamin D3) 50 100 mcg PO DAILY 09/21/20 03/10/25 03/10/25 History mcg (2,000 unit) capsule triamcinolone acetonide 0.1 % 1 applic topical DAILY PRN Rash 09/21/20 03/10/25 Unknown History topical cream omeprazole 40 mg capsule,delayed 40 mg PO BID 02/14/24 03/10/25 03/10/25 History release aspirin 81 mg tablet 81 mg PO DAILY 03/09/24 03/10/25 02/24/24 History vitamin B12 0.5 mg-folic acid 1 mg 1 tab PO DAILY 03/09/24 03/10/25 03/10/25 History tablet nitroglycerin 0.4 % (w/w) rectal 1 inch OK BID 03/10/25 03/10/25 Unknown History ointment (Rectiv) Allergies Allergy/AdvReac Type Severity Reaction Status Date / Time erythromycin base Allergy nausea Verified 02/23/25 09:09 [facility] Anesthesia Medical History Acromioclavicular joint arthritis Impingement of right shoulder Hypertension Hernia, inguinal Ganglion cyst Torn ligament History of asthma Hx of benign neoplasm of breast Peyronie's disease Surgical History S/P shoulder surgery Date of procedure: March 10, 2024 Pre-op diagnosis: Right shoulder impingement, possible rotator cuff tear, and acromioclavicular joint osteoarthritis Procedure done: Open right acromioplasty with distal clavicle resection Surgeon: Rafia Denson MD History of colonoscopy 2006 Hx of inguinal hernia repair Hx of hand surgery History of cholecystectomy Hx of right knee surgery Family History Father , at 74 CAD (coronary artery disease) Diabetes Hypertension Mother , at 83 Cancer CAD (coronary artery disease) Clotting disorder Brother Cancer Clotting disorder Family/Other Dementia Denies family history of Chronic kidney disease (CKD) Suicide Anesthesia complication Bleeding disorder Lung disease Stroke Social History Smoking and tobacco/nicotine status: never used tobacco/nicotine Alcohol intake: never Substance/Drug Use: never Marital status: Current occupational status: retired Data Anesthesia Cardiac Studies: Echocardiogram 12/19/20 Sestamibi Stress Test (Cardiology) 11/01/20
[2025-03-11] MEDS: acetaminophen 1,000 MG/100 ML PIGGYBACK 400 MG IV ×3 (06:41→22:39)
--- NOTE | 2025-03-11 07:04 | W.PM.OPSUD ---
Surgery/Procedure H&P Update DATE OF PROCEDURE: March 11, 2025 DATE H&P PERFORMED: 03/11/25 H&P UPDATE INFORMATION: I have reviewed H&P completed within last 30 days, I have examined patient prior to procedure, No changes to prior documentation, H&P is in [facility] EMR on date indicated and Risks and benefits of the procedure reviewed PREOP DIAGNOSIS: Right Knee arthritis PLANNED PROCEDURE: Operation Date: 03/11/25 07:00 Proposed Procedures p RIGHT Christiano Robot Total Knee Arthroplasty(Right) - Rafia Denson MD Related Problem List Diagnoses 1. Primary osteoarthritis of right knee:
[2025-03-11] MEDS: ceFAZolin 2,000 mg SDV 2000 MG IVP ×3 (07:07→22:59)
[2025-03-11] MEDS: tranexamic acid 1,000 mg/10mL SDV 1000 MG XX (07:20)
[2025-03-11] MEDS: BUPivacaine liposome 13.3 mg/mL SDV 20 mL 266 MG XX (08:10)
[2025-03-11] MEDS: BUPivacaine 0.5% INJ 30 mL 20 ML XX (08:10)
[2025-03-11] MEDS: ceFAZolin 1,000 mg SDV 2000 MG IRRIGATION (08:16)
--- NOTE | 2025-03-11 10:05 | XR_ITS ---
WS: [id number] XR knee RT 3V* [id number] REASON FOR EXAM: Status post right total knee arthroplasty FINDINGS: Total right knee arthroplasty. Components of the arthroplasty are intact and in proper position and alignment. No focal bone abnormality. XR/XR knee RT 3V* [id number] IMPRESSION: Total right knee arthroplasty as above.
--- NOTE | 2025-03-11 10:09 | P.OP_ITS ---
Operative Report Date of procedure: March 11, 2025 Pre-op diagnosis: Primary osteoarthritis right knee with slight flexion contracture Post-op diagnosis: Primary osteoarthritis right knee with slight flexion contracture Post-op findings: Slight varus deformity with flexion contracture and significant osteoarthritis to the right knee. Procedure done: Right total knee arthroplasty with Christiano guidance Implants: The Marshal total knee system with a size 5 triathlon beaded cruciate retaining femur right, a triathlon titanium tibial component size 4 beaded, a triathlon X3 tibial bearing CS insert size 4 x 11 mm and a beaded triathlon titanium asymmetric patella size 35 x 10 mm Specimens removed/disposition: Bone, disposed of Pathology: None Surgeon: Rafia Denson MD Veneer Grader: Giselle Tineo, nurse practitioner, who services were required for positioning, retraction, completion of the surgical procedure, and closure Anesthesia: General (Intubated, ASA 3) Estimated blood loss (mL): 270 Tourniquet time (min): 0 (Not utilized) IV fluids (mL): 1,800 Urine output (mL): 300 Complications: None Findings: Significant degenerative osteoarthritis with slight flexion contracture and denudement of cartilage. Slight varus deformity. Condition: stable Disposition: PACU (Then to floor for postoperative rehabilitation and pain management) Brief History: This 74-year-old gentleman presented to the office for right knee pain and giving way. The patient had concerns of falling down and had limitations in his activities of daily living. After discussion in the office, the patient wished to proceed with operative intervention in the form of right total knee arthroplasty. Risks and complications were discussed with him. Consents were signed, and questions were answered. Procedure: The patient was brought to the operating theater, and after undergoing general anesthesia, ASA 3, the right lower extremity was prepped with Dura-Prep and draped in usual fashion following placement of a tourniquet high on the leg. The leg was then draped free.? Tourniquet was not elevated throughout the surgical procedure. Prior to commencement of the procedure, a surgical pause was performed, and at the time of the surgical pause, we confirmed the site and side of surgery. Additionally, we confirmed the appropriate and timely administration of preoperative antibiotics, Ancef 2 g.? The availability of equipment was confirmed, and the patient's identity was verbalized as well. Following the surgical pause, an incision was made centering over the patella continuing proximally and distally as necessary to allow access to the knee joint. Prior to incision, assessment was made of the patient's leg, and there was noted to be a slight flexion contracture with minimal varus deformity. Dissection continued through skin and soft tissues using a scalpel. Hemostasis was obtained using electrocautery. The skin incision was followed by a median parapatellar arthrotomy. The leg was extended and the patella was able to be displaced laterally.? Appropriate arrays and markers were placed in appropriate position for use of the Christiano.? Preoperative planning had been accomplished and was discussed in detail with the Christiano customer service representative teller.? Intraoperative mapping of the femur and tibia was accomplished after the arrays were placed.? Internal markers were also placed.? Once we had accomplished the Christiano mapping, we began the appropriate resections for placement of the prosthesis.? The plan was for a cruciate retaining right total knee arthroplasty. Retraction was established using manual retraction by medical or surgical instrument maker and also the Christiano leg positioner and retractors.? The knee was evaluated.? There was minimal flexion contracture and only slight varus deformity. There were not large osteophytes, but those present were removed. Appropriate bone resection was accomplished using the Christiano.? The femur was sized to a size 5.? Following femoral cuts, attention was directed to the tibia.? Osteophytes were removed prior to this portion of the procedure.? We had performed a medial release at the beginning of the procedure to allow for placement of the array.? Proximal tibia was evaluated, and it was felt that appropriate size for the tibia was a size 4.? The size 4 tray was noted to fit nicely with good coverage.? Rim fit was accomplished with the size 4. A trial reduction was accomplished after osteophytes as well as the medial and lateral menisci had been removed.? We had removed the anterior cruciate ligament at the beginning of the case and preserved the posterior cruciate ligament.? Trial reduction was accomplished with a size 5 femoral cruciate retaining component, a size 4 tibial tray and a size 4 CS tibial bearing insert which was 9 mm thickness. There was felt to be too much laxity with the knee in extension, and trial reduction was then accomplished with the 11 mm insert. With this configuration of a size 5 femur, a size 4 tibia with a 11 mm insert, the knee was noted to be well-balanced. Alignment was felt to be appropriate as well.? Trial components were removed after the femur had been drilled.? Prior to removal of the tibial tray which had been pinned in position with appropriate rotation as determined by the Christiano plan, we broached the tibia.? Subsequently, the 4 drill holes were made for the prosthetic component.? All trial components were removed, and the wound was irrigated.? Plans were made for insertion of the prosthetic components.? Prior to this, the patella was manually prepared.? After resection of the articular surface with the jigging system, it was measured and measured a 35 mm patella.? We resected approximately 10 mm of patella.? Patellar height was restored with the patellar component. Once again, the wound was irrigated. The Tritanium tibia was impacted into position.? The beaded femur was then impacted into position in a cementless fashion. The CS tibial insert was placed prior to placement of the femoral component. The patella was pressed into position with a patellar clamp.? The knee was then copiously irrigated with betadine and saline and suctioned dry. Attention was then directed to closure. Closure was accomplished with 0 Vicryl in the fascial tissues.? The suture line of 0 Vicryl was supplemented with strata fix #1, with a running suture from proximal to distal and a second running stitch from distal to proximal.? This was followed by Surgiflo and vancomycin powder.? Following this, a 2-0 Monocryl was used in the subcutaneous tissues, and the skin was closed with 3-0 Strata fix.? Care was taken to assure an excellent subcutaneous as well as skin closure.? A sterile dressing was then placed consisting of Dermabond Prineo, OpSite, ABD, sterile soft roll, and an Seth wrap including over the foot. The patient was returned the Recovery Room in a satisfactory condition. X-rays were obtained and reviewed there.? The patient will be discharged to the floor for postoperative rehabilitation and pain management. Related Problem List Diagnoses 1. Primary osteoarthritis of right knee:
[2025-03-11] MEDS: fentaNYL 50 mcg/mL INJ 2mL IVP (11:50)
--- NOTE | 2025-03-11 13:00 | ANE.PACU2 ---
Inpatient post-anesthesia follow up: Airway intact: Yes Vital signs: Temperature 98.2 F Pulse Rate 60 Respiratory Rate 18 Blood Pressure 124/83 Pulse Oximetry 95 Oxygen Delivery Me thod Room Air Oxygen Flow Rate 6 Fraction of Inspir ed Oxygen Hydration adequate: Yes Nausea and vomiting: No Pain level: 1 Mental status: Baseline Additional Comments: Patient initially slow to wake up. Ocais-es-zfir was 4 out of 4 but 200 mg sugammadex initially given in PACU to see if there was improvement of awareness. Patient was extremely slow to wake up but eventually did wake up and was doing well
[2025-03-11] MEDS: chlorhexidine gluconate 0.12% Btl 473 mL 30 ML MUCOUS MEM ×3 (14:19→22:59)
[2025-03-11] MEDS: oxyCODONE 5 mg IR Tab/Cap PO ×3 (14:19→22:40)
[2025-03-11] MEDS: mupirocin oint 22 gm 1 APPLIC NASAL (16:16)
[2025-03-11] MEDS: sennosides-docusate Tablet 2 TAB PO (16:16)
[2025-03-12] VITALS (8 sets, daily range): BP systolic 104–136; BP diastolic 58–88; PULSE 70–98; RESP 15–18; TEMP 36.7–37; O2SAT 94–95
[2025-03-12] MEDS: oxyCODONE 5 mg IR Tab/Cap PO ×3 (04:31→13:41)
[2025-03-12] MEDS: sennosides-docusate Tablet 2 TAB PO (04:31)
[2025-03-12] MEDS: multivitamin therapeutic Tablet 1 TAB PO (04:33)
[2025-03-12 04:41] LABS: Hematocrit 31.7 % (37-53); Hemoglobin 11.10 g/dL (11.27-16.99); Mean Corpuscular HGB Conc 35.0 g/dL (30-55); Mean Corpuscular Hemoglobin 30.4 pg (27-33); Mean Corpuscular Volume 86.8 fl (82-101); Nucleated Red Blood Cells % 0 %; Platelet Count 173 10^3/cmm (157-399); Red Blood Count 3.65 10^6/uL (3.85-5.65); White Blood Count 13.40 10^3/uL (3.29-11.43)
[2025-03-12 05:02] LABS: Anion Gap 15.6 (5-19); Blood Urea Nitrogen 18 mg/dL (8-23); Calcium 8.8 mg/dL (8.5-10.5); Carbon Dioxide 23 mmol/L (22-29); Chloride 106 mmol/L (98-107); Creatinine Clr Calc Pharmacy 61.5816; Glucose 142 mg/dL (65-115); Osmolality Calculated 294 mOsm/kg (285-295); Potassium 4.6 mmol/L (3.5-5.1); Sodium 140 mmol/L (136-145)
[2025-03-12] MEDS: mupirocin oint 22 gm 1 APPLIC NASAL (05:35)
[2025-03-12] MEDS: acetaminophen 1,000 MG/100 ML PIGGYBACK 400 MG IV (05:36)
[2025-03-12] MEDS: ceFAZolin 2,000 mg SDV 2000 MG IVP (05:54)
--- NOTE | 2025-03-12 12:19 | P.DS_ITS ---
Discharge Providers Date of Admission: 03/11/25 12:44 Date of Discharge: March 12, 2025 Attending Provider at Admission: Rafia Denson MD Attending Provider at Discharge: Rafia Denson MD Primary Care Provider: JEFFREY Quezada Diagnoses at Discharge Discharge Diagnosis 1. Primary osteoarthritis of right knee: 2. Status post total right knee replacement not using cement: Reason for Visit Reason for Visit: M17.11 Brief History: This 74-year-old gentleman presented to the office for right knee pain and giving way. The patient had concerns of falling down and had limitations in his activities of daily living. After discussion in the office, the patient wished to proceed with operative intervention in the form of right total knee arthroplasty. Risks and complications were discussed with him. Consents were signed, and questions were answered. Physical Exam Const: COMMON NORMALS: no acute distress, average body habitus, patient oriented x3 and alert GENERAL APPEARANCE: cooperative and comfortable ORIENTATION/CONSCIOUSNESS: Yes awake HENMT: COMMON NORMALS: normocephalic and atraumatic HEAD & SCALP: normocephalic and atraumatic Eye: GENERAL EYE: appearance normal, both eyes and all related structures Chest: COMMONS NORMALS: normal inspection of the chest Resp: COMMON NORMALS: normal respiratory effort EFFORT & INSPECTION: Yes able to speak in complete sentences and Yes symmetric chest movement Extremity: RIGHT LOWER EXTREMITY: Yes knee joint (Large outer dressing removed. OpSite dry and intact.) Right knee: Yes palpation (No significant ecchymosis), Yes ROM (Not evaluated) and Yes neurovascular exam (Intact distally with no evidence of DVT) Neuro: COMMON NORMALS: patient oriented x3 SENSORIUM/ORIENTATION: Yes alert Psych: COMMON NORMALS: mental status grossly normal APPEARANCE: Yes grossly normal ATTITUDE: Yes calm and Yes engaged ATTENTION/CONCENTRATION: Yes attention grossly intact Skin: COMMON NORMALS: no rashes or lesions noted GENERAL SKIN EXAM: no rashes or lesions noted Urinary Catheter Management: Acevedo Latex: Cath Placed During This Visit: yes, but has since been removed by the nurse Reason for Continuing Indwelling Catheter: Perioperative Use in Selected Surgeries Urinary Catheter Date of Insertion: 03/11/25 Urinary Catheter Time of Insertion: 07:35 Date Urinary Catheter Removed: 03/12/25 Time Urinary Catheter Discontinued: 06:00 Discharge Data Studies Completed and Pending Completed Studies During Hospitalization Category Date Time Status XR knee RT 1-2V 19107 Routine Exams 03/11/25 10:05 Completed Radiology Impressions Knee X-Ray 03/11/25 10:05 IMPRESSION: Total right knee arthroplasty as above. Laboratory Results WBC 13.40 10^3/uL (3.29-11.43) H 03/12/25 04:20 RBC 3.65 10^6/uL (3.85-5.65) L 03/12/25 04:20 Hgb 11.10 g/dL (11.27-16.99) L 03/12/25 04:20 Hct 31.7 % (37-53) L 03/12/25 04:20 MCV 86.8 fl (82-101) 03/12/25 04:20 MCH 30.4 pg (27-33) 03/12/25 04:20 MCHC 35.0 g/dL (30-55) 03/12/25 04:20 RDW 12.9 % (12.1-15.1) 03/12/25 04:20 Plt Count 173 10^3/cmm (157-399) 03/12/25 04:20 MPV 9.1 fL (7.4-10.4) 03/12/25 04:20 Neut % (Auto) 84.8 % 03/12/25 04:20 Lymph % (Auto) 6.0 % 03/12/25 04:20 [place] % (Auto) 8.7 % 03/12/25 04:20 Eos % (Auto) 0.0 % 03/12/25 04:20 Baso % (Auto) 0.1 % 03/12/25 04:20 Neut # (Auto) 11.34 10^3/uL (1.8-7.7) H 03/12/25 04:20 Lymph # (Auto) 0.8 10^3/uL (0.8-4.8) 03/12/25 04:20 [place] # (Auto) 1.2 10^3/uL (0.2-0.9) H 03/12/25 04:20 Eos # (Auto) 0.0 10^3/uL (0.0-0.8) 03/12/25 04:20 Baso # (Auto) 0.0 10^3/uL (0.0-0.1) 03/12/25 04:20 Nucleated RBC % (auto) 0 % 03/12/25 04:20 Nucleated RBCs # 0.0 /100WBC 03/12/25 04:20 Sodium 140 mmol/L (136-145) 03/12/25 04:20 Potassium 4.6 mmol/L (3.5-5.1) 03/12/25 04:20 Chloride 106 mmol/L (98-107) 03/12/25 04:20 Carbon Dioxide 23 mmol/L (22-29) 03/12/25 04:20 Anion Gap 15.6 (5-19) 03/12/25 04:20 BUN 18 mg/dL (8-23) 03/12/25 04:20 Creatinine 1.0 mg/dL (0.7-1.2) 03/12/25 04:20 GFR Calculation Not Reportable 03/12/25 04:20 Glucose 142 mg/dL (65-115) H 03/12/25 04:20 Calculated Osmolality 294 mOsm/kg (285-295) 03/12/25 04:20 Calcium 8.8 mg/dL (8.5-10.5) 03/12/25 04:20 Vitals Last Vital Signs Temp 98.1 F 03/12/25 11:34 Pulse 89 03/12/25 11:34 Resp 17 03/12/25 11:34 BP 136/88 03/12/25 11:34 Pulse Ox 94 03/12/25 11:34 O2 Del Method Room Air 03/12/25 11:34 O2 Flow Rate 6 03/11/25 10:51 Discharge Plan Discharge Patient Disposition: Home Health Service Condition: Stable Prescriptions: New acetaminophen 500 mg Tablet 1,000 mg PO Q8H 15 Days Qty: 0 0RF aspirin 325 mg Tablet,Delayed Release (Dr/Ec) 325 mg PO DAILY 30 Days Qty: 0 0RF celecoxib [Celebrex] 200 mg capsule 200 mg PO DAILY 30 Days Qty: 30 0RF oxycodone 5 mg Tablet 5 mg PO Q4H PRN (Reason: Moderate To Severe Pain) 7 Days Qty: 40 0RF Continued nitroglycerin 0.4 mg tablet, sublingual 0.4 mg sublingual Q5M PRN (Reason: Chest Pain) Rx Instructions: do not exceed 3 doses per episode cholecalciferol (vitamin D3) 50 mcg (2,000 unit) capsule 100 mcg PO DAILY albuterol sulfate [ProAir HFA] 90 mcg/actuation HFA aerosol inhaler 2 puff inhalation Q6H PRN (Reason: Shortness Of Breath) triamcinolone acetonide 0.1 % cream 1 applic topical DAILY PRN (Reason: Rash) omeprazole 40 mg capsule,delayed release(DR/EC) 40 mg PO BID aspirin 81 mg Tablet 81 mg PO DAILY vitamin [id number] acid 0.5-1 mg Tablet 1 tab PO DAILY nitroglycerin [Rectiv] 0.4 % (w/w) Ointment 1 inch OK BID Held ibuprofen 200 mg tablet 200 mg PO Q6H PRN (Reason: Pain) Hold Instructions: Resume after Celebrex is completed Discharge Order = DC NOW: Discharge Order (Routine); Ordered 03/12/25 Ordered By: Rafia Denson Referrals: [facility] Outpatient Therapy [Outside] - 03/15/25 8:00 am Rafia Denson MD [Physician, Orthopedics] - 03/24/25 2:15 pm Discharge Diet: Advance as tolerated and Usual diet Discharge Activity: Increase activity as tolerated, Limit activity as instructed, Use walker/crutches as instructed and As per PT/OT instructions Patient Instructions: Oxycodone, Rapid Release (By mouth), Celecoxib (By mouth), Acute Wound Care (DC), Total Knee Replacement (GEN), Joint Replacement Stoplight, Opioid Safety, Post Anesthesia Care, Patient Portal & [place]ri Instructions Activity Restrictions/Additional Instructions: Elevate right lower extremity. Ice to right knee. You may weight-bear as tolerated. Physical therapy for range of motion, gait training, and strengthening. You may shower and get your knee wet, but do not submerge it in water. Maintain the clear dressing unless it lifts up and begins to leak at which time you may remove it. Discharge Attestations Time Spent in Discharge Care*: greater than 30 min Specific Discharge Activities: educating patient, documenting/other paperwork and evaluating patient/reviewing data Quality Metrics Clinical Quality Measures [ No reported AMI, CVA or VTE this stay] Coding Level of Care Code Acute Code for Chg Fwd Diagnoses Primary osteoarthritis of right knee M17.11 Status post total right knee replacement not using cement Z96.651
== END 2025-03-12 14:05 | disposition home health service (06) ==
LOC: MEDSURG 12:44
PROVIDERS: Admitting Provider Specialist; PCP Nurse Practitioner; Visit Provider Specialist
PROC: 8E0Y0CZ Robotic Assisted Procedure of Lower Extremity, Open Approach (ICD-10-PCS; CPT 27447; principal; 2025-03-11 07:00)
DX: M17.11 Unilateral primary osteoarthritis, right knee (principal); K21.9 Gastro-esophageal reflux disease without esophagitis; Z79.82 Long term (current) use of aspirin; Z86.74 Personal history of sudden cardiac arrest; J45.909 Unspecified asthma, uncomplicated; E78.5 Hyperlipidemia, unspecified
CPT/HCPCS: 27447; 20985; 36415; 51702; 73560; 73562; 80048; 85025; 97110; 97116; 97161; 97165; 97530; A4216; C1776; G0378; J0131; J0666; J0690; J1100; J2405; J2704; J3010; J3373; J3490; J7030; J9999

== ENCOUNTER 2025-03-15 07:24 | Outpatient (RCR) | payer OTHER, SELFPAY | END 2025-04-09 23:59 | disposition home or self-care (01) | LOC: SPT 07:24 | PROVIDERS: PCP Nurse Practitioner; Visit Provider Specialist | DX: Z47.1 Aftercare following joint replacement surgery (principal); Z96.651 Presence of right artificial knee joint | CPT/HCPCS: 97110; 97161; 97530 ==

== ENCOUNTER → 2025-03-24 13:49 | Outpatient (BNVA) | payer OTHER, SELFPAY | PROVIDERS: PCP Nurse Practitioner; Visit Provider Specialist | DX: Z98.890 Other specified postprocedural states (principal); Z96.651 Presence of right artificial knee joint | CPT/HCPCS: 73560; 73565; 99024 ==

== ENCOUNTER 2025-04-10 05:00 | Outpatient (RCR) | payer OTHER, SELFPAY | END 2025-05-09 23:59 | disposition home or self-care (01) | LOC: SPT 05:00 | PROVIDERS: PCP Nurse Practitioner; Visit Provider Specialist | DX: Z47.1 Aftercare following joint replacement surgery (principal); Z96.651 Presence of right artificial knee joint | CPT/HCPCS: 97110; 97530 ==

== ENCOUNTER 2025-05-10 05:00 | Outpatient (RCR) | payer OTHER, SELFPAY | END 2025-06-09 23:59 | disposition home or self-care (01) | LOC: SPT 05:00 | PROVIDERS: PCP Nurse Practitioner; Visit Provider Specialist | DX: Z47.1 Aftercare following joint replacement surgery (principal); Z96.651 Presence of right artificial knee joint | CPT/HCPCS: 97110 ==

== ENCOUNTER → 2025-05-24 14:14 | Outpatient (BNVA) | payer OTHER, SELFPAY | PROVIDERS: PCP Nurse Practitioner; Visit Provider Specialist | DX: Z98.890 Other specified postprocedural states (principal); Z96.651 Presence of right artificial knee joint | CPT/HCPCS: 73560; 73565; 99024 ==